=== PATIENT | female | born 1980 | race Caucasian/White ===

== ENCOUNTER 2020-03-27 12:13 | Emergency (ER) | payer BC, SELFPAY ==
--- NOTE | 2020-03-27 12:22 | ED.SKABFB ---
HPI - Skin/Abscess/Foreign Bdy General Chief complaint: Skin/Abscess/Foreign Body Stated complaint: rash on legs Time Seen by Provider: 03/27/20 12:35 Source: patient and RN notes reviewed Mode of arrival: ambulatory Limitations: no limitations History of Present Illness HPI narrative: 39-year-old female with history of smoking, presents with concern for bilateral lower leg edema. Reports the left leg has red spots, painful to the touch with a burning sensation. Reports symptoms started yesterday. Denies fever, malaise, cough, shortness of breath. Reports her significant other has identical symptoms that started at the same time, reports they have been staying in hotels under semi-homeless. Patient admits to using IV drugs, shooting up in her right arm yesterday. MD complaint: other (Leg swelling and discoloration) Related Data Allergies Allergy/AdvReac Type Severity Reaction Status Date / Time No Known Allergies Allergy Verified 03/27/20 12:33 Review of Systems Review of Systems: Narrative: CONSTITUTIONAL: Denies malaise, chills, sweats, or fever. ENT: Denies rhinorrhea, congestion, sinus pain, otalgia or sore throat. CARDIOVASCULAR: Denies chest pain, palpitations. Reports bilateral lower leg edema RESPIRATORY: Denies cough or dyspnea. GASTROINTESTINAL: Denies abdominal pain, nausea, vomiting, diarrhea SKIN: Reports left leg redness, burning pain MUSCULOSKELETAL: Denies myalgia. NEUROLOGIC: Denies numbness, weakness, or headache. All systems reviewed & are unremarkable except as noted in HPI and below PMFSH Comments At time of signature, agree with nursing past medical, surgical, social and family history. There is no relevant family history pertinent to the presenting complaint Exam Narrative: Exam Narrative: GENERAL: Well-appearing, well-nourished, and in no acute distress. HEAD: Normocephalic EYES: PERRLA, conjunctivae clear ENT: Nares clear. Mucous membranes moist. Oropharynx without erythema or lesions. Tonsils not enlarged and without exudate. NECK: Supple. No lymphadenopathy. CHEST: No respiratory distress. Clear to auscultation. No bony deformities, no asymmetry. Speaks in full sentences. HEART: Regular rate and rhythm. No murmur heard. Normal peripheral pulses. EXTREMITIES: Normal range of motion. Normal strength and sensation. Bilateral lower leg nonpitting edema SKIN: Warm, dry, no rash. Nonpalpable patches of dark red erythema, not consistent with cellulitis NEURO: Alert and oriented x3. PSYCH: Normal mood and affect Course Course Emergency Course: Discussed with patient need for further evaluation in the emergency department. Patient reports due to lack of transportation, she will not go to the emergency room now. Suggested transfer via EMS, although the patient is stable and does not require transfer via EMS. Patient refused. Anticipatory guidance given. Portions of this record may have been created with voice recognition software Vital Signs Vital signs: Reviewed. Patient has been instructed to follow up with her primary care provider within the next week regarding her elevated blood pressure today. MDM - Skin/Abscess/Foreign Bdy MDM Narrative Medical decision making narrative: Does not appear at this time to be erythema multiforme, bullous, SJS, TEN; no evidence at this time to suggest RMSF, endocarditis or Lyme disease; patient looks well, nontoxic and is tolerating oral intake; no neurologic signs or symptoms; no headache, photophobia or neck pain; afebrile; appropriate for initial outpatient treatment; discussed the importance of follow-up, patient agrees; question, viral exanthema, contact dermatitis, allergic dermatitis, eczema, urticaria. No soft palate or uvula edema, no tongue, lip edema or other mucosal involvement, no respiratory compromise, no stridor, no wheezing, no wheezing, no history of syncope, no hypotension, no nausea, vomiting, or diarrhea. No soft palate purpura The patient
[2020-03-27 12:25] VITALS: BP 133/81; PULSE 92; RESP 14; TEMP 36.6; O2SAT 99
== END 2020-03-27 13:18 | disposition left against medical advice (07) ==
PROVIDERS: Emergency Provider Nurse Practitioner
DX: R60.0 Localized edema (principal); F41.9 Anxiety disorder, unspecified
CPT/HCPCS: 99213; G0463

== ENCOUNTER 2020-05-02 17:23 | Emergency (ER) | payer BC, SELFPAY ==
[2020-05-02 17:27] VITALS: BP 140/82; PULSE 102; RESP 16; TEMP 36.6; O2SAT 98
--- NOTE | 2020-05-02 17:48 | ED.GENADULT ---
HPI - General Adult General Chief complaint: Ear Stated complaint: left ear pain/drainage Time Seen by Provider: 05/02/20 17:48 Source: patient and RN notes reviewed Mode of arrival: ambulatory Limitations: no limitations History of Present Illness HPI narrative: 39-year-old female presents with complaints of fever (no temperature take only warm to touch per patient), left otalgia, and yellow drainage from LT ear for the past 2 days. Aline says she has taking 6 tablets of left over Keflex and OTC ear drops without relief. Denies swimming or getting water into ear. Trouble hearing. Denies URI symptoms, No high fevers or chills. Denies injury to the ear. No nasal drainage and congestion. Denies nausea, vomiting, tinnitus, and dizziness. LMP 04/04/20. Remains active. The patient reports she have not been diagnosed with COVID-19. The patient reports she is not waiting for the results of a COVID-19 lab test. The patient reports she do not have fever, chills, weakness, fatigue, myalgia, or facial swelling. The patient reports she do not have a new or worsening cough or shortness of breath. Denies chest pain. The patient reports she do not have any rhinorrhea, congestion, sore throat, nausea, vomiting, abdominal pain, and diarrhea. Tolerating po intake well. Denies recent traveling. Denies concerns for COVID-19 or exposures been home with limited outdoor exposure except for essential household needs, work, and return home. At this time, patient is not suspected of having COVID-19. Some parts of this dictation were generated by voice recognition software and may contain typographical and/or grammatical inaccuracies. Related Data Allergies Allergy/AdvReac Type Severity Reaction Status Date / Time No Known Allergies Allergy Verified 05/02/20 17:35 Review of Systems Review of Systems: Narrative: CONSTITUTIONAL: Denies chills, sweats. Complain of fever. EYES: Denies visual changes, redness, discharge. ENT: Denies rhinorrhea, congestion, sore throat otalgia. Complains of LT otalgia with yellow drainage. CARDIOVASCULAR: Denies chest pain, palpitations, edema. RESPIRATORY: Denies dyspnea, wheezing, cough. GASTROINTESTINAL: Denies abdominal pain, nausea, vomiting, diarrhea. GENITOURINARY: Denies dysuria, hematuria, abnormal discharge. SKIN: Denies rash or itching. MUSCULOSKELETAL: Denies acute back pain, joint pain, or myalgia. NEUROLOGIC: Denies numbness or focal weakness. PSYCHIATRIC: Denies anxiety or depression. All systems reviewed & are unremarkable except as noted in HPI and below PMFSH Past Medical History Medical History Ankle fracture, left Anxiety Depression Peripheral vascular disease Smoker in home Surgical History Surgical History (Updated 05/02/20 @ 18:03 by ИРИНА Perez) History of axillary surgery Right axilla lymph node removal Family History Family History (Updated 05/02/20 @ 18:03 by ИРИНА Perez) Father Alive and well Mother Peripheral vascular disease Social History Social History (Updated 05/02/20 @ 18:04 by ИРИНА Perez) Smoking packs per day: 0.5 Smoking cigarettes per day: 10.0 Years smoked: 20 Smoking pack-years: 10.00 Smoking status: Current every day smoker Tobacco type: cigarettes Second hand tobacco smoke exposure: Yes Alcohol intake: former Alcohol use details: Aline says 5 years ago she stopped drinking Substance use: never Living arrangements: with family Occupation/Education: unemployed Gender identity (if verbalized by the patient): Female Sexual Orientation (if Verbalized by the Patient): Straight or Heterosexual Comments At time of signature, I have reviewed and agree with nursing past medical, surgical, social, and family history. Please see nursing chart for further information. There is no relevant family history pertinent to the presenting complaint. Exam Narrative: Exam Narrative
== END 2020-05-02 18:03 | disposition home or self-care (01) ==
PROVIDERS: Emergency Provider Nurse Practitioner Family
DX: H60.92 Unspecified otitis externa, left ear (principal); F17.210 Nicotine dependence, cigarettes, uncomplicated; I73.9 Peripheral vascular disease, unspecified
CPT/HCPCS: 99213; G0463

== ENCOUNTER 2021-03-27 18:39 | Emergency (ER) | payer BC, SELFPAY ==
[2021-03-27 18:54] VITALS: BP 122/71; PULSE 90; RESP 18; TEMP 36.9; O2SAT 99
--- NOTE | 2021-03-27 19:46 | ED.SKABFB ---
HPI - Skin/Abscess/Foreign Bdy General Chief complaint: Skin/Abscess/Foreign Body Stated complaint: Possible Cellulitis Time Seen by Provider: 03/27/21 19:47 Source: patient, RN notes reviewed and old records reviewed Mode of arrival: ambulatory Limitations: no limitations History of Present Illness HPI narrative: 40 year old female who [facility] with complaints of red inflamed skin to the distal posterior lower left leg, which is painful and swollen. Patient states that she scratched the back of her leg 2 days ago and now she has this pain and red rash. Patient denies any pain to her calf area of her left lower leg, patient has swelling to her left ankle and foot. Pedal pulses palpable to her left foot with foot warm to touch negative Homans sign. Patient states that she took 3 doses of Amoxicillin that she had at home and has been applying Bactroban ointment. Patient states that she has had cellulitis in the past. MD complaint: rash Onset (ago): day(s) (2) Location: LLE Severity: moderate Severity scale (1-10): 10 Quality: aching, sharp and other (throbbing) Pain Consistency: constant Relieving factors: none Exacerbating factors: movement Context: other (scratched skin) Associated symptoms: denies other symptoms Treatments prior to arrival: OTC topical medication and antibiotic (left over Amoxicillin 3 doses) Related Data Allergies Allergy/AdvReac Type Severity Reaction Status Date / Time No Known Allergies Allergy Verified 05/02/20 17:35 Review of Systems Review of Systems: Narrative: CONSTITUTIONAL: Denies fever, chills, or sweats. EYES: Denies visual changes, redness, or discharge. ENT: Denies rhinorrhea, congestion, sore throat, or otalgia. CARDIOVASCULAR: Denies chest pain, palpitations, or edema. RESPIRATORY: Denies cough or dyspnea. GASTROINTESTINAL: Denies abdominal pain, nausea, vomiting, or diarrhea. GENITOURINARY: Denies dysuria or hematuria. SKIN: Positive for rash with pain to the distal posterior left lower leg painful and warm MUSCULOSKELETAL: Denies back pain, joint pain, or myalgia. NEUROLOGIC: Denies headache, numbness, or weakness. PSYCHIATRIC: Positive anxiety or depression. All systems reviewed & are unremarkable except as noted in HPI and below PMFSH Past Medical History Medical History Ankle fracture, left Anxiety Depression Peripheral vascular disease Smoker in home Surgical History Surgical History History of axillary surgery Right axilla lymph node removal Family History Family History Father Alive and well Mother Peripheral vascular disease Social History Social History Smoking packs per day: 0.5 Smoking cigarettes per day: 10.0 Years smoked: 20 Smoking pack-years: 10.00 Smoking status: Current every day smoker Tobacco type: cigarettes Second hand tobacco smoke exposure: Yes Alcohol intake: former Alcohol use details: Aline says 5 years ago she stopped drinking Substance use: never Gender identity (if verbalized by the patient): Female Comments At time of signature, agree with nursing past medical, surgical, social and family history. There is no relevant family history pertinent to the presenting complaint Exam Narrative: Exam Narrative: GENERAL: Well-appearing, well-nourished, and in no acute distress. HEAD: Normocephalic, atraumatic. EYES: PERRLA and EOMI. ENT: Nares clear, no rhinorrhea or epistaxis. Mucous membranes moist. NECK: Supple.no lymph adenopathy CHEST: Clear to auscultation. No respiratory distress.SAO2 99% on room air HEART: Regular rate and rhythm. No murmur heard. Normal peripheral pulses. ABDOMEN: Soft, nontender, nondistended, normal active bowel sounds. EXTREMITIES: Normal range of motion. Edema to left ankle and foot SKIN: Warm, dry, red infl
== END 2021-03-27 20:06 | disposition home or self-care (01) ==
PROVIDERS: Emergency Provider Registered Nurse
DX: L03.116 Cellulitis of left lower limb (principal); F17.210 Nicotine dependence, cigarettes, uncomplicated; I73.9 Peripheral vascular disease, unspecified
CPT/HCPCS: 99213; G0463

== ENCOUNTER 2021-05-21 16:36 | Emergency (ER) | payer BC, SELFPAY ==
[2021-05-21 16:48] VITALS: BP 138/84; PULSE 105; RESP 16; TEMP 37.1; O2SAT 100
--- NOTE | 2021-05-21 16:54 | ED.SKABFB ---
HPI - Skin/Abscess/Foreign Bdy General Chief complaint: Skin/Abscess/Foreign Body Stated complaint: spider bite on breast Source: patient Mode of arrival: ambulatory Limitations: no limitations History of Present Illness HPI narrative: Patient is a 41-year-old female who presents complaining of abscess to right breast. Patient states spider bite right breast x2 days. She reports increased pain and swelling today. Denies drainage. Patient denies fever, denies taking [id number] medications for pain prior to arrival. Patient has a history of right axillary lymph node removal. MD complaint: abscess/boil Related Data Allergies Allergy/AdvReac Type Severity Reaction Status Date / Time No Known Allergies Allergy Verified 05/02/20 17:35 Review of Systems Review of Systems: CONSTITUTIONAL: Denies fever, chills, or sweats. EYES: Denies visual changes, redness, or discharge. ENT: Denies rhinorrhea, congestion, sore throat, or otalgia. CARDIOVASCULAR: Denies chest pain, palpitations, or edema. RESPIRATORY: Denies cough or dyspnea. GASTROINTESTINAL: Denies abdominal pain, nausea, vomiting, or diarrhea. GENITOURINARY: Denies dysuria or hematuria. SKIN: Abscess to right breast MUSCULOSKELETAL: Denies back pain, joint pain, or myalgia. NEUROLOGIC: Denies headache, numbness, dizziness, or weakness. PSYCHIATRIC: Denies anxiety or depression. [facility] Past Medical History Medical History Ankle fracture, left Anxiety Depression Peripheral vascular disease Smoker in home Surgical History Surgical History History of axillary surgery Right axilla lymph node removal Family History Family History Father Alive and well Mother Peripheral vascular disease Social History Social History Smoking packs per day: 0.5 Smoking cigarettes per day: 10.0 Years smoked: 20 Smoking pack-years: 10.00 Smoking status: Current every day smoker Tobacco type: cigarettes Second hand tobacco smoke exposure: Yes Alcohol intake: former Alcohol use details: Aline says 5 years ago she stopped drinking Substance use: never Gender identity (if verbalized by the patient): Female Sexual Orientation (if Verbalized by the Patient): Straight or Heterosexual Comments At the time of signature, I have reviewed and agree with nursing past medical, surgical, social, and family history unless otherwise noted. Please see nursing chart for further information. There is no relevant family history pertinent to the presenting complaint. Exam Narrative: GENERAL: Well-appearing, well-nourished, and in no acute distress. HEAD: Normocephalic, atraumatic. EYES: EOMI. No redness or drainage. Conjunctiva are normal. ENT: Mucous membranes pink and moist. Nares clear. No rhinorrhea. TMs normal bilaterally. Throat normal. Uvula midline. NECK: AROM. Supple. No lymphadenopathy. CHEST: No respiratory distress. Clear to auscultation. HEART: Regular rate and rhythm. No murmur appreciated. Normal peripheral pulses. GI: Soft, nontender without rebound, or guarding. No distention. Bowel sounds normal in all quadrants. MUSCULOSKELETAL: No bony tenderness. EXTREMITIES: Normal range of motion. No edema. SKIN: Approximate 12 inch long by 8 inches wide area of erythema and edema, fluctuation present. Approximate 8 cm round raised area and central area. No drainage noted at this time. NEURO: No focal deficits. Alert and oriented x3. Gait steady. PSYCH: Normal affect. No signs of depression or anxiety. Course Transfer Transfered to: [facility]) Transfer rationale: Higher level of care Accepting physician: Dr. Tuttle Transfer comments: Patient to be transferred per private vehicle. Critical Care Time Critical Care Time Critical Care Time: No Discharge
== END 2021-05-21 16:57 | disposition short-term general hospital (02) ==
PROVIDERS: Emergency Provider Nurse Practitioner; PCP Nurse Practitioner Adult Health
DX: N61.1 Abscess of the breast and nipple (principal); N61.0 Mastitis without abscess; I73.9 Peripheral vascular disease, unspecified; F17.210 Nicotine dependence, cigarettes, uncomplicated
CPT/HCPCS: 99212; G0463

== ENCOUNTER 2022-03-12 14:31 | Emergency (ER) | payer BC, SELFPAY ==
[2022-03-12 14:36] VITALS: BP 145/86; PULSE 99; RESP 16; TEMP 36.6; O2SAT 98
--- NOTE | 2022-03-12 14:52 | ED.EYEPROB ---
HPI - Eye Problem General Chief complaint: Eye Problems Stated complaint: eyes dry itchy and swollen hand Time Seen by Provider: 03/12/22 14:52 History of Present Illness HPI Narrative: Patient is a 41-year-old female who presents the urgent care with complaints of now she thinks she is getting 1 right swollen hand, bilateral itchy eyes and possibility of bacterial vaginosis. Patient states that the right swollen hand has been like that intermittently for the last 6 months. Patient states that she used to be an IV drug user and had cellulitis in that hand and ever since then she has had intermittent swelling. Patient states the swelling has not gotten any worse or better over the last several months however she feels like she is deformed . Patient denies any recent fevers, nausea, vomiting or redness to the hand. Denies any recent trauma or injury to the hand. Patient has been taking Benadryl for the itchy eyes that started yesterday. Patient wears false eyelashes but states she has never had issues with allergic reactions from the glue or lashes themselves. Patient denies any new make-up products. States that she recently was using a sex toy that may have not been completely sanitized prior to use and now she has foul odor of vaginal discharge consistent with her history of bacterial vaginosis. Patient denies any abdominal pain. No other complaints. No distress noted. Patient aware of the plan of care. Some parts of this dictation were generated by voice recognition software and may contain typographical and/or grammatical inaccuracies. Related Data Allergies Allergy/AdvReac Type Severity Reaction Status Date / Time No Known Allergies Allergy Verified 03/12/22 15:05 Review of Systems Review of Systems: CONSTITUTIONAL: Denies fever, chills, or sweats. EYES: Reports bilateral itchy eyes with clear drainage ENT: Denies rhinorrhea, congestion, sore throat, or otalgia. CARDIOVASCULAR: Denies chest pain, palpitations, or edema. RESPIRATORY: Denies cough or dyspnea. GASTROINTESTINAL: Denies abdominal pain, nausea, vomiting, or diarrhea. GENITOURINARY: Reports of foul odor to the vaginal thick discharge SKIN: Denies rash or itching. MUSCULOSKELETAL: Reports of chronic swelling to the right hand NEUROLOGIC: Denies headache, numbness, or weakness. All other systems reviewed are negative, except as documented in HPI. [facility] Past Medical History Medical History Ankle fracture, left Anxiety Depression Peripheral vascular disease Smoker in home Surgical History Surgical History History of axillary surgery Right axilla lymph node removal Family History Family History Father Alive and well Mother Peripheral vascular disease Social History Social History Smoking packs per day: 0.5 Smoking cigarettes per day: 10.0 Years smoked: 20 Smoking pack-years: 10.00 Smoking status: Current every day smoker Tobacco type: cigarettes Second hand tobacco smoke exposure: Yes Alcohol intake: former Alcohol use details: Aline says 5 years ago she stopped drinking Substance use: never Gender identity (if verbalized by the patient): Female Sexual Orientation (if Verbalized by the Patient): Straight or Heterosexual Comments At the time of my signature, I reviewed and agree with the nursing past medical, surgical, social, and family history. There is no relevant family history pertinent to the patient complaint. Exam Narrative: GENERAL: This is a well-nourished, well-developed patient, in no apparent distress. HEAD: normocephalic, atraumatic. EYES: PERRL. Sclera clear/white. Vision is grossly intact. Mild injected conjunctiva bilaterally with clear drainage EARS: External ears normal NOSE: External nose normal with no obvious nasal disc
== END 2022-03-12 15:20 | disposition home or self-care (01) ==
PROVIDERS: Emergency Provider Nurse Practitioner Family; PCP Internal Medicine
DX: H10.13 Acute atopic conjunctivitis, bilateral (principal); N76.0 Acute vaginitis; M79.89 Other specified soft tissue disorders; F17.210 Nicotine dependence, cigarettes, uncomplicated; I73.9 Peripheral vascular disease, unspecified
CPT/HCPCS: 99213; G0463

== ENCOUNTER 2022-09-13 14:58 | Emergency (ER) | payer BC, SELFPAY ==
[2022-09-13 15:04] VITALS: BP 153/87; PULSE 94; RESP 18; TEMP 37.7; O2SAT 98
--- NOTE | 2022-09-13 15:40 | ED.EAR ---
HPI - Ear Problem General Chief complaint: Ear Stated complaint: Ear Pain Time Seen by Provider: 09/13/22 15:40 Source: patient Mode of arrival: ambulatory Limitations: no limitations History of Present Illness HPI Narrative: 42-year-old female who presents to [facility] Care with complaints of 1 day duration of right ear pain with swelling, drainage and fevers and acute pain to her right ear. Patient reports that she began having yellowish greenish drainage from her right ear last night but pain has increased today.Patient has been having some low grade fevers today, has not taken any OTC medication for her discomfort. MD Complaint: ear pain and ear discharge Location: right ear Duration: constant Discharge from ear: Reports yes - purulent Treatment prior to arrival: none Related Data Allergies Allergy/AdvReac Type Severity Reaction Status Date / Time No Known Allergies Allergy Verified 09/13/22 15:30 Review of Systems Review of Systems: CONSTITUTIONAL: Denies malaise, chills, sweats, or fever. EYES: Denies visual changes, redness, or discharge. ENT: Reports rhinorrhea, congestion, sinus pain, positive for right ear pain no sore throat. CARDIOVASCULAR: Denies chest pain, palpitations, or edema. RESPIRATORY: Reports cough.? Denies dyspnea. GASTROINTESTINAL: Denies abdominal pain, nausea, vomiting, diarrhea SKIN: Denies rash or itching. MUSCULOSKELETAL: Denies myalgia. NEUROLOGIC: Denies headache. All systems reviewed & are unremarkable except as noted in HPI and below PMFSH Past Medical History Medical History Ankle fracture, left Anxiety Depression Peripheral vascular disease Smoker in home Surgical History Surgical History History of axillary surgery Right axilla lymph node removal Family History Family History Father Alive and well Mother Peripheral vascular disease Social History Social History Smoking packs per day: 0.5 Smoking cigarettes per day: 10.0 Years smoked: 20 Smoking pack-years: 10.00 Smoking status: Current every day smoker Tobacco type: cigarettes Second hand tobacco smoke exposure: Yes Alcohol intake: former Alcohol use details: Aline says 5 years ago she stopped drinking Substance use: never Gender identity (if verbalized by the patient): Female Sexual Orientation (if Verbalized by the Patient): Straight or Heterosexual Comments At time of signature, agree with nursing past medical, surgical, social and family history. There is no relevant family history pertinent to the presenting complaint Exam Narrative: GENERAL: Well-appearing, well-nourished, and in no acute distress. HEAD: Normocephalic EYES: PERRLA, conjunctivae clear ENT: Nares clear, turbinates edematous and erythematous, clear discharge. Mucous membranes moist.Right TM red and bulging, ear canal swollen with excoriation and drainage which is purulent. Left TM pearly mobley with dull light reflex; Right tragal tenderness. Oropharynx erythematous without lesions. Tonsils not enlarged and without exudate, no drooling, no hoarseness, no trismus, uvula midline. NECK: Supple. No lymphadenopathy CHEST: Clear to auscultation, breath sounds equal. No wheezing, rhonchi, rales, or stridor. No respiratory distress, speaks in full sentences.SAO2 98% on room air HEART: Regular rate and rhythm. No murmur heard. SKIN: Warm, dry, no rash. NEURO: Alert and oriented x3. PSYCH: Normal mood and affect Course Course Emergency Course: Patient is aware of diagnosis, understands and agrees to treatment plan.? Anticipatory guidance given.? Patient agrees to follow-up as directed and is aware of reasons to seek care at the emergency department. Portions of this record may have been created with voice recognition soft
== END 2022-09-13 15:55 | disposition home or self-care (01) ==
PROVIDERS: Emergency Provider Registered Nurse; PCP Internal Medicine
DX: H60.391 Other infective otitis externa, right ear (principal); H65.01 Acute serous otitis media, right ear; F17.210 Nicotine dependence, cigarettes, uncomplicated; I73.9 Peripheral vascular disease, unspecified
CPT/HCPCS: 99213; G0463

== ENCOUNTER 2022-10-28 19:47 | Emergency (ER) | payer BC, SELFPAY ==
--- NOTE | 2022-10-28 19:49 | ED.LOWEXIN ---
HPI - Extremity Injury (Lower) General Chief Complaint: Skin/Abscess/Foreign Body Stated Complaint: left leg Time Seen by Provider: 10/28/22 19:50 Source: patient and RN notes reviewed History of Present Illness HPI Narrative: Patient is a 42-year-old female who presents to urgent care with complaints of left lower leg swelling, redness and pain. Patient states she noticed it 2 days ago and it seems to have worsened this evening. Patient has not done anything [id number] for her pain. Patient states that she has had cellulitis in the past and her right hand has been chronically swollen due to a stint of cellulitis while she was in senior living approximately 1 year ago. Patient denies any fever, nausea or vomiting. Denies any recent injury to cause the redness, swelling or pain. No other acute complaints. No acute distress noted. Patient aware of the plan of care. Some parts of this dictation were generated by voice recognition software and may contain typographical and/or grammatical inaccuracies. Related Data Home Medications Medication Instructions Recorded Confirmed bupropion HCl 100 mg tablet,12 hr 100 mg PO BID 10/28/22 10/28/22 sustained-release Allergies Allergy/AdvReac Type Severity Reaction Status Date / Time No Known Allergies Allergy Verified 09/13/22 15:30 Review of Systems Review of Systems: CONSTITUTIONAL: Denies fever, chills, or sweats. EYES: Denies visual changes, redness, or discharge. ENT: Denies rhinorrhea, congestion, sore throat, or otalgia. CARDIOVASCULAR: Denies chest pain, palpitations, or edema. RESPIRATORY: Denies cough or dyspnea. GASTROINTESTINAL: Denies abdominal pain, nausea, vomiting, or diarrhea. GENITOURINARY: Denies dysuria or hematuria. SKIN: Denies rash or itching. MUSCULOSKELETAL: Reports of redness, pain and swelling to the left lower leg NEUROLOGIC: Denies headache, numbness, or weakness. All other systems reviewed are negative, except as documented in HPI. [facility] Past Medical History Medical History Ankle fracture, left Anxiety Depression Peripheral vascular disease Smoker in home Surgical History Surgical History History of axillary surgery Right axilla lymph node removal Family History Family History Father Alive and well Mother Peripheral vascular disease Social History Social History Smoking packs per day: 0.5 Smoking cigarettes per day: 10.0 Years smoked: 20 Smoking pack-years: 10.00 Smoking status: Current every day smoker Tobacco type: cigarettes Second hand tobacco smoke exposure: Yes Alcohol intake: former Alcohol use details: Aline says 5 years ago she stopped drinking Substance use: never Living arrangements: with family Occupation/Education: unemployed Gender identity (if verbalized by the patient): Female Sexual Orientation (if Verbalized by the Patient): Straight or Heterosexual Comments At the time of my signature, I reviewed and agree with the nursing past medical, surgical, social, and family history. There is no relevant family history pertinent to the patient complaint. Exam Narrative: GENERAL: This is a well-nourished, well-developed patient, in no apparent distress. HEAD: normocephalic, atraumatic. EYES: PERRL. Sclera clear/white. Vision is grossly intact. EARS: External ears normal NOSE: External nose normal with no obvious nasal discharge, nares without redness, no rhinorrhea. THROAT: Mucous membranes moist NECK: Neck supple SKIN: 14 x 6 area of erythema and warmth to the medial aspect of the left lower leg/ankle NEURO: awake, alert, and oriented to person, place and time. There were no obvious focal neurologic abnormalities. EXTREMITIES: 2+ left lower leg pitting edema with positive strong left pedal pulse and capillary
[2022-10-28 19:50] VITALS: BP 147/90; PULSE 98; RESP 20; TEMP 36.1; O2SAT 100
[2022-10-28 19:56] VITALS: BP 147/90; PULSE 98; RESP 20; TEMP 36.1; O2SAT 100
== END 2022-10-28 20:00 | disposition home or self-care (01) ==
PROVIDERS: Emergency Provider Nurse Practitioner Family; PCP Internal Medicine
DX: L03.116 Cellulitis of left lower limb (principal); L02.416 Cutaneous abscess of left lower limb; F17.210 Nicotine dependence, cigarettes, uncomplicated; F41.9 Anxiety disorder, unspecified; F32.A Depression, unspecified; I73.9 Peripheral vascular disease, unspecified
CPT/HCPCS: 99213; G0463

== ENCOUNTER 2023-01-03 19:55 | Emergency (ER) | payer BC, SELFPAY ==
--- NOTE | 2023-01-03 19:55 | ED.LOWEXIN ---
HPI - Extremity Injury (Lower) General Chief Complaint: Extremity Injury, Lower Stated Complaint: toes on left foot Time Seen by Provider: 01/03/23 19:56 Source: patient and RN notes reviewed History of Present Illness HPI Narrative: Patient is a 42-year-old female who presents to urgent care with complaints of possible broken toes on the left foot on her wooden bar at home. Patient states she stubbed him approximately 1-2 weeks ago and she is having increased pain. Patient states that she saw her primary care doctor because of the bruising and they ruled out a DVT. Patient is requesting prescription pain medication. Patient is current/former drug use. Patient has been taking Tylenol and ibuprofen. No other acute complaints. No acute distress noted. Patient aware of the plan of care. Some parts of this dictation were generated by voice recognition software and may contain typographical and/or grammatical inaccuracies. Related Data Home Medications Medication Instructions Recorded Confirmed bupropion HCl 100 mg tablet,12 hr 100 mg PO BID 10/28/22 10/28/22 sustained-release Allergies Allergy/AdvReac Type Severity Reaction Status Date / Time No Known Allergies Allergy Verified 01/03/23 20:00 Review of Systems Review of Systems: CONSTITUTIONAL: Denies fever, chills, or sweats. EYES: Denies visual changes, redness, or discharge. ENT: Denies rhinorrhea, congestion, sore throat, or otalgia. CARDIOVASCULAR: Denies chest pain, palpitations, or edema. RESPIRATORY: Denies cough or dyspnea. GASTROINTESTINAL: Denies abdominal pain, nausea, vomiting, or diarrhea. GENITOURINARY: Denies dysuria or hematuria. SKIN: Denies rash or itching. MUSCULOSKELETAL: Reports bruising and pain to the 4th and 5th digit on the right foot NEUROLOGIC: Denies headache, numbness, or weakness. All other systems reviewed are negative, except as documented in HPI. [facility] Past Medical History Medical History Ankle fracture, left Anxiety Depression Peripheral vascular disease Smoker in home Surgical History Surgical History History of axillary surgery Right axilla lymph node removal Family History Family History Father Alive and well Mother Peripheral vascular disease Social History Social History Smoking packs per day: 0.5 Smoking cigarettes per day: 10.0 Years smoked: 20 Smoking pack-years: 10.00 Smoking status: Current every day smoker Tobacco type: cigarettes Second hand tobacco smoke exposure: Yes Alcohol intake: former Alcohol use details: Aline says 5 years ago she stopped drinking Substance use: never Living arrangements: with family Occupation/Education: unemployed Gender identity (if verbalized by the patient): Female Sexual Orientation (if Verbalized by the Patient): Straight or Heterosexual Comments At the time of my signature, I reviewed and agree with the nursing past medical, surgical, social, and family history. There is no relevant family history pertinent to the patient complaint. Exam Narrative: GENERAL: This is a well-nourished, well-developed patient, in no apparent distress. HEAD: normocephalic, atraumatic. EYES: PERRL. Sclera clear/white. Vision is grossly intact. EARS: External ears normal NOSE: External nose normal with no obvious nasal discharge, nares without redness, no rhinorrhea. THROAT: Mucous membranes moist SKIN: warm, intact with no suspicious lesions or rash, good texture and turgor. NEURO: awake, alert, and oriented to person, place and time. There were no obvious focal neurologic abnormalities. EXTREMITIES: Ecchymosis and mild edema noted to the 4th and 5th digit on the left foot. Positive strong left pedal pulse with capillary refill less than 2 seconds. Course Course Level of Car
[2023-01-03 19:56] VITALS: BP 153/91; PULSE 109; RESP 20; TEMP 36.4; O2SAT 98
== END 2023-01-03 20:06 | disposition home or self-care (01) ==
PROVIDERS: Emergency Provider Nurse Practitioner Family; PCP Internal Medicine
DX: M79.675 Pain in left toe(s) (principal); F17.210 Nicotine dependence, cigarettes, uncomplicated; I73.9 Peripheral vascular disease, unspecified; F41.9 Anxiety disorder, unspecified; F32.A Depression, unspecified
CPT/HCPCS: 99211; G0463

== ENCOUNTER 2023-04-30 16:28 | Emergency (ER) | payer BC, SELFPAY ==
[2023-04-30 16:34] VITALS: BP 142/79; PULSE 92; RESP 18; TEMP 36.6; O2SAT 99
--- NOTE | 2023-04-30 16:44 | ED.EXTPRO ---
HPI - Extremity Problem General Chief complaint: Wound/Laceration Stated complaint: toes on left foot Time Seen by Provider: 04/30/23 16:50 Source: patient and RN notes reviewed Mode of arrival: ambulatory Limitations: no limitations History of Present Illness HPI Narrative: 42-year-old female presents with concern for chronic wound on her left foot that she feels is in fact did. Reports that starting to smell. Reports she has had problems with circulation in her feet for some time and has been unable to get a diagnosis for this problem. Reports she developed a wound on the pedal aspect of her 4th digit of the left foot about a month and half ago that will not heal and is now beginning to smell, she reports purulent drainage. She reports she has been soaking the foot in warm Epson salt water, she uses wound cleanser and peroxide. Reports she elevates her feet whenever she can. MD Complaint: extremity pain Related Data Allergies Allergy/AdvReac Type Severity Reaction Status Date / Time No Known Allergies Allergy Verified 04/30/23 16:49 Review of Systems Review of Systems: CONSTITUTIONAL: Denies malaise, chills, sweats, or fever. EYES: Denies redness, or discharge. ENT: Denies rhinorrhea, congestion, swollen lips, swollen tongue CARDIOVASCULAR: Denies chest pain, palpitations, or edema. RESPIRATORY: Denies cough or dyspnea. GASTROINTESTINAL: Denies abdominal pain, nausea, vomiting SKIN: Reports chronic wound on the 4th digit of her left foot MUSCULOSKELETAL: Pain and swelling in the 4th and 5th digits of the left foot NEUROLOGIC: Denies headache. All systems reviewed & are unremarkable except as noted in HPI and below PMFSH Past Medical History Medical History Ankle fracture, left Anxiety Depression Peripheral vascular disease Smoker in home Surgical History Surgical History History of axillary surgery Right axilla lymph node removal Family History Family History Father Alive and well Mother Peripheral vascular disease Social History Social History Smoking packs per day: 0.5 Smoking cigarettes per day: 10.0 Years smoked: 20 Smoking pack-years: 10.00 Smoking status: Current every day smoker Tobacco type: cigarettes Second hand tobacco smoke exposure: Yes Alcohol intake: former Alcohol use details: Aline says 5 years ago she stopped drinking Substance use: never Living arrangements: with family Occupation/Education: unemployed Gender identity (if verbalized by the patient): Female Sexual Orientation (if Verbalized by the Patient): Straight or Heterosexual Comments At time of signature, agree with nursing past medical, surgical, social and family history. There is no relevant family history pertinent to the presenting complaint Exam Narrative: GENERAL: Well-appearing, well-nourished, and in no acute distress. HEAD: Normocephalic, atraumatic. EYES: PERRLA, conjunctivae clear, and EOMI. ENT: Mucous membranes moist. Oropharynx without edema, erythema or lesions. NECK: Supple. No lymphadenopathy CHEST: Clear to auscultation. No respiratory distress. HEART: Regular rate and rhythm. EXT: Digits 4 and 5 of the left foot edematous, tender SKIN: Warm, dry. Dusky coloration noted to the 3rd, 4th, 5th digits of both feet with cap refill at 3 seconds bilaterally. Wound with yellow crusted wound bed noted to the dorsal aspect of the 4th digit of the left foot approximately 0.5 cm in diameter NEURO: Alert and oriented x3. PSYCH: Normal mood and affect Course Course Emergency Course: Patient was given information for wound care as well as the new primary care provider. Patient is aware of diagnosis, understands and agrees to treatment plan. Anticipatory guidance given. Patient agrees to follow-up
== END 2023-04-30 17:05 | disposition home or self-care (01) ==
PROVIDERS: Emergency Provider Nurse Practitioner; PCP Internal Medicine
DX: S91.105A Unspecified open wound of left lesser toe(s) without damage to nail, initial encounter (principal); X58.XXXA Exposure to other specified factors, initial encounter; I73.9 Peripheral vascular disease, unspecified; F17.210 Nicotine dependence, cigarettes, uncomplicated
CPT/HCPCS: 99213; G0463

== ENCOUNTER 2023-06-13 19:45 | Emergency (ER) | payer BC, SELFPAY ==
[2023-06-13 19:50] VITALS: BP 131/86; PULSE 101; RESP 18; TEMP 36.9; O2SAT 98
--- NOTE | 2023-06-13 19:54 | ED.SKABFB ---
HPI - Skin/Abscess/Foreign Bdy General Chief complaint: Skin/Abscess/Foreign Body Stated complaint: Right foot burning aching Time Seen by Provider: 06/13/23 19:47 History of Present Illness HPI narrative: Patient presents with chronic problems to her lower extremities and has been treated for same symptoms in the past. Patient presents today with pain tenderness and warmth to her right lower extremity. Patient has been treated multiple times to this facility for same complaints. Patient has not followed with the primary care provider as advised. Patient denies injury to foot. Patient states this is a chronic problem and usually gets better with antibiotic. Related Data Allergies Allergy/AdvReac Type Severity Reaction Status Date / Time No Known Allergies Allergy Verified 06/13/23 19:49 Review of Systems Review of Systems: CONSTITUTIONAL: Denies fever, chills, or sweats. EYES: Denies visual changes, redness, or discharge. ENT: Denies rhinorrhea, congestion, sore throat, or otalgia. CARDIOVASCULAR: Denies chest pain, palpitations, or edema. RESPIRATORY: Denies cough or dyspnea. GASTROINTESTINAL: Denies abdominal pain, nausea, vomiting, or diarrhea. GENITOURINARY: Denies dysuria or hematuria. SKIN: Denies rash or itching. MUSCULOSKELETAL: Denies back pain, joint pain, or myalgia. NEUROLOGIC: Denies headache, numbness, or weakness. PSYCHIATRIC: Denies anxiety or depression. [facility] Past Medical History Medical History Ankle fracture, left Anxiety Depression Peripheral vascular disease Smoker in home Surgical History Surgical History History of axillary surgery Right axilla lymph node removal Family History Family History Father Alive and well Mother Peripheral vascular disease Social History Social History Smoking packs per day: 0.5 Smoking cigarettes per day: 10.0 Years smoked: 20 Smoking pack-years: 10.00 Smoking status: Current every day smoker Tobacco type: cigarettes Second hand tobacco smoke exposure: Yes Alcohol intake: former Alcohol use details: Aline says 5 years ago she stopped drinking Substance use: never Living arrangements: with family Occupation/Education: unemployed Gender identity (if verbalized by the patient): Female Sexual Orientation (if Verbalized by the Patient): Straight or Heterosexual Comments At time of signature, agree with nursing past medical, surgical, social and family history. There is no relevant family history pertinent to the presenting complaint Exam Narrative: GENERAL: Well-appearing, well-nourished, and in no acute distress. HEAD: Normocephalic, atraumatic. EYES: PERRLA and EOMI. ENT: Nares clear, no rhinorrhea or epistaxis. Mucous membranes moist. NECK: Supple. CHEST: Clear to auscultation. No respiratory distress. HEART: Regular rate and rhythm. No murmur heard. Normal peripheral pulses. ABDOMEN: Soft, nontender, nondistended, normal active bowel sounds. EXTREMITIES: Normal range of motion. No edema. Dusky coloration noted to the 3rd, 4th, 5th digits of both feet with cap refill at 3 seconds bilaterally.? 3 cm area of redness lower ankle to top of right foot. Consistent with cellulitis no streaking no drainage noted. SKIN: Warm, dry, no rash. NEURO: No focal deficits. Alert and oriented x3. Somis Coma Scale Eye Opening: Spontaneous 4 [place] Coma Scale Motor: Obeys Commands 6 [place] Coma Scale Verbal: Oriented 5 [place] Coma Scale Total 15 Course Course Level of Care: Express Care Visit Vital Signs Vital signs: Vital Signs Temperature 36.9 C 06/13/23 19:50 Pulse Rate 101 H 06/13/23 19:50 Respiratory Rate 18 06/13/23 19:50 Blood Pressure 131/86 06/13/23 19:50 Pulse Oximetry 98 06/13/23 19:50 Oxygen Delivery Room Air
[2023-06-13 19:56] VITALS: BP 131/86; PULSE 101; RESP 18; TEMP 36.9; O2SAT 98
== END 2023-06-13 20:00 | disposition home or self-care (01) ==
PROVIDERS: Emergency Provider Nurse Practitioner Family; PCP Internal Medicine
DX: L03.115 Cellulitis of right lower limb (principal); L02.415 Cutaneous abscess of right lower limb; G89.29 Other chronic pain; F17.210 Nicotine dependence, cigarettes, uncomplicated
CPT/HCPCS: 99213; G0463

== ENCOUNTER 2023-07-16 14:35 | Emergency (ER) | payer BC, SELFPAY ==
--- NOTE | ~2023-07-16 | XR_ITS ---
XR toe 4th RT min 2V DATE: 07/16/2023 15:16 INDICATION: Acute onset of medial proximal lump. No known injury. TECHNIQUE: 5 total views COMPARISON: None FINDINGS: Nonspecific soft tissue swelling. No fracture or dislocation, periosteal reaction or bone d estruction, radiopaque soft tissue foreign body fourth digit. 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 IMPRESSION: Nonspecific soft tissue swelling; no significant bony abnormality of fourth digit Reviewed, dictated and finalized at location B. IMPRESSION: Nonspecific soft tissue swelling; no significant bony abnormality o f fourth digit
--- NOTE | ~2023-07-16 | XR_ITS ---
EXAMINATION: XR tibia fibula RT 2V DATE: 07/16/2023 15:23 INDICATION: New onset lump at the medial proximal right lower leg TECHNIQUE: Anteroposterior and lateral views of the right tibia and fibula were obtained. COMPARISON: None. FINDINGS: Alignment is normal. No fracture. Joint spaces are normal. Soft tissues are unremarkable. No knee or ankle joint effusion. IMPRESSION: 1. Negative right tibia/fibula radiographs. Reviewed, dictated and finalized at location A.
[2023-07-16 14:40] VITALS: BP 137/84; PULSE 102; RESP 18; TEMP 36.2; O2SAT 97
--- NOTE | 2023-07-16 14:48 | ED.SKABFB ---
HPI - Skin/Abscess/Foreign Bdy General Chief complaint: Skin/Abscess/Foreign Body Stated complaint: Toes on Right Foot Pain Time Seen by Provider: 07/16/23 14:48 Source: patient Mode of arrival: ambulatory Limitations: no limitations History of Present Illness HPI narrative: 43 yo F presents with redness and swelling to R 4th toe for several wks. Was seen at [facility] with same complaint. 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 began taking keflex and bactrim last night. Wants to make sure this is hte right abx since infection now worse. Also requesting tramadol for pain. Denies numbness/tingling. pt also reports bump just before R knee. States just popped up. grandoanh had a hx of rare bone cancer . All systems reviewed and negative except as noted above. Related Data Home Medications Medication Instructions Recorded Confirmed gabapentin 300 mg capsule 300 mg PO TID 07/16/23 07/16/23 Allergies Allergy/AdvReac Type Severity Reaction Status Date / Time No Known Allergies Allergy Verified 07/16/23 14:49 Review of Systems Review of Systems: CONSTITUTIONAL: Denies fever, chills, or sweats. EYES: Denies visual changes, redness, or discharge. ENT: Denies rhinorrhea, congestion, sore throat, or otalgia. CARDIOVASCULAR: Denies chest pain, palpitations, or edema. RESPIRATORY: Denies cough or dyspnea. GASTROINTESTINAL: Denies abdominal pain, nausea, vomiting, or diarrhea. GENITOURINARY: Denies dysuria or hematuria. SKIN: Denies rash or itching. reports redness and swelling to R 4th toe wtih pain. MUSCULOSKELETAL: Denies back pain, joint pain, or myalgia. NEUROLOGIC: Denies headache, numbness, or weakness. PSYCHIATRIC: Denies anxiety or depression. All other systems reviewed are negative, except as documented in HPI. [facility] Past Medical History Medical History Ankle fracture, left Anxiety Depression Peripheral vascular disease Smoker in home Surgical History Surgical History History of axillary surgery Right axilla lymph node removal Family History Family History Father Alive and well Mother Peripheral vascular disease Social History Social History Smoking packs per day: 0.5 Smoking cigarettes per day: 10.0 Years smoked: 20 Smoking pack-years: 10.00 Smoking status: Current every day smoker Tobacco type: cigarettes Second hand tobacco smoke exposure: Yes Alcohol intake: former Alcohol use details: Aline says 5 years ago she stopped drinking Substance use: never Living arrangements: with family Occupation/Education: unemployed Gender identity (if verbalized by the patient): Female Sexual Orientation (if Verbalized by the Patient): Straight or Heterosexual Comments At time of signature, agree with nursing past medical, surgical, social and family history. There is no relevant family history pertinent to the presenting complaint. Exam Narrative: GENERAL: This is a well-nourished, well-developed patient, in no apparent distress. HEAD: normocephalic, atraumatic. EYES: PERRL. Sclera clear/white. Vision is grossly intact. EARS: External ears normal NOSE: External nose normal NECK: Neck supple, non-tender without lymphadenopathy, masses or thyromegaly. CARDIOVASCULAR: Regular rate and rhythm without murmurs, gallops, or rubs. RESPIRATORY: Clear to auscultation. Breath sounds equal bilaterally. No wheezes, rales, or rhonchi. SKIN: warm, Dry, intact with no suspicious lesions or rash, good texture and turgor. erythema to R 4th toe and mild to R 5th toe, extending into distal aspect of R foot. Warm and tendon on palpation without fluctuance. normal temp. 2+DP pulse to RLE. NEURO: awake, alert, and oriented to person, place and time. There were no obvious focal brandon
--- NOTE | 2023-07-16 15:28 | PC.NURSE ---
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 PT IS REQUESTING TRAMADOL AND NUMBING CREAM PRIOR TO LEAVING. PT REPORTS SHE WILL EYELET CUTTER THE CHILDREN AND RETURN FOR RESULTS. PROVIDER SPOKE WITH PT AND ABX WERE SENT TO PHARMACY AND PT IS AWARE. PT DECLINES TO WAIT FOR RESULTS AT THIS TIME. PT ADVISED HER SITUATION WAS SERIOUS AND NEEDED FURTHER EVALUATION. PT ADVISED SHE WILL RETURN.
== END 2023-07-16 15:38 | disposition left against medical advice (07) ==
PROVIDERS: Emergency Provider Nurse Practitioner Family; PCP Internal Medicine
DX: L03.031 Cellulitis of right toe (principal); F17.210 Nicotine dependence, cigarettes, uncomplicated; I73.9 Peripheral vascular disease, unspecified
CPT/HCPCS: 73590; 73660; 99214; G0463

== ENCOUNTER 2024-02-20 11:41 | Emergency (ER) | payer OTHER, SELFPAY ==
[2024-02-20 12:00] VITALS: BP 142/93; PULSE 86; RESP 16; TEMP 36.9; O2SAT 99
--- NOTE | 2024-02-20 12:20 | ED.SKABFB ---
HPI - Skin/Abscess/Foreign Bdy General Chief complaint: Skin/Abscess/Foreign Body Stated complaint: Skin Sore/Left Ankle Time Seen by Provider: 02/20/24 12:03 Source: patient, RN notes reviewed and old records reviewed Mode of arrival: ambulatory Limitations: no limitations History of Present Illness HPI narrative: 43-year-old female to Express Care with complaint of left lateral ankle pain, swelling for 3 days. patient noted what appeared to be a bite 3-4 days ago and states increased swelling, redness and pain as well as generalized myalgias. Patient states that for past 2 days she has noticed her 4th and 5th toes being discolored. Patient reports history of bilateral lower extremity cellulitis. Patient denies fever, drainage from wound, nausea, itching. patient is hypertensive in triage. Patient appears anxious in exam room however patient is in no acute distress. Patient also requesting treatment for bacterial vaginosis. Patient reports history and states that she has been having malodorous discharge for 4 days. Patient believes it is a result of using contaminated sex toys . Related Data Allergies Allergy/AdvReac Type Severity Reaction Status Date / Time No Known Allergies Allergy Verified 07/16/23 14:49 Review of Systems Review of Systems: All systems reviewed & are unremarkable except as noted in HPI and below Constitutional: Constitutional: Reports as per HPI, Reports body ache(s), Reports fatigue and Denies fever(s) Eyes: Eyes: Reports no additional eye complaints ENT: Reports system reviewed and no additional complaints, except as documented Cardiovascular: Cardiovascular: Reports as per HPI, Reports acrocyanosis (left foot/digits), Denies chest pain, Denies chest pain at rest and Denies dyspnea Respiratory: Respiratory: Reports no additional respiratory complaints, Denies cough and Denies dyspnea Musculoskeletal: Musculoskeletal: Reports as per HPI and Reports myalgias Integumentary/Breasts: Skin/Breast: Reports as per HPI and Reports wounds ( Left lateral ankle) Neurologic: Reports system reviewed and no additional complaints, except as documented Psychiatric: Psychiatric: Reports no additional psychiatric complaints [facility] Past Medical History Medical History Ankle fracture, left Anxiety Depression Peripheral vascular disease Smoker in home Surgical History Surgical History History of axillary surgery Right axilla lymph node removal Family History Family History Father Alive and well Mother Peripheral vascular disease Social History Social History Smoking packs per day: 0.5 Smoking cigarettes per day: 10.0 Years smoked: 20 Smoking pack-years: 10.00 Smoking status: Current every day smoker Tobacco type: cigarettes Second hand tobacco smoke exposure: Yes Alcohol intake: former Alcohol use details: Aline says 5 years ago she stopped drinking Substance use: never Living arrangements: with family Occupation/Education: unemployed Gender identity (if verbalized by the patient): Female Sexual Orientation (if Verbalized by the Patient): Straight or Heterosexual Comments At the time of my signature, I reviewed and agree with the nursing past medical, surgical, social, and family history. There is no relevant family history pertinent to the patient complaint. Exam Const: General: cooperative, no acute distress, alert, anxious, uncomfortable and well nourished Nutritional Appearance: well nourished Orientation/consciousness: patient oriented x3 Limitations: no limitations HENMT: Head: normal to inspection Ears: external ears normal Face/Nose/Sinus: Normal external nose present, Normal nares present, normal facial exam, No erythema and No edema Face and sinus: normal facial exam, no e
== END 2024-02-20 12:37 | disposition short-term general hospital (02) ==
PROVIDERS: Emergency Provider Nurse Practitioner Family
DX: N76.0 Acute vaginitis (principal); L03.116 Cellulitis of left lower limb; M79.10 Myalgia, unspecified site; F17.210 Nicotine dependence, cigarettes, uncomplicated; I73.9 Peripheral vascular disease, unspecified
CPT/HCPCS: 99213; G0463

== ENCOUNTER 2024-03-12 17:03 | Emergency (ER) | payer OTHER, SELFPAY ==
[2024-03-12 17:15] VITALS: BP 153/91; PULSE 95; RESP 16; TEMP 36.6; O2SAT 99
--- NOTE | 2024-03-12 17:18 | ED.SKABFB ---
HPI - Skin/Abscess/Foreign Bdy General Chief complaint: Skin/Abscess/Foreign Body Stated complaint: Left ankle wound Time Seen by Provider: 03/12/24 17:19 Source: patient, RN notes reviewed and old records reviewed Mode of arrival: ambulatory Limitations: no limitations History of Present Illness HPI narrative: patient presents with complaints of worsening to her chronic left ankle wound. Patient with history of peripheral vascular disease, continues to smoke and vape, presents to [facility] with complaints of worsening to wound to left lateral ankle. She is unsure how she sustained the wound. It has been present intermittently for several months. Reports that it worsened approximately 1 month ago, she was put on cephalexin at that time. Has not been taking it as prescribed. Took approximately half of her course of antibiotics, began noticing worsening of drainage approximately 3 days ago. She is keeping the wound clean at home. She denies any fever, chills, sweats. She does have some discoloration to the toes of the affected foot, and the other foot as well. She reports that these changes are chronic and have been present for over 2 years. Related Data Allergies Allergy/AdvReac Type Severity Reaction Status Date / Time No Known Allergies Allergy Verified 07/16/23 14:49 Review of Systems Review of Systems: All systems reviewed & are unremarkable except as noted in HPI and below Constitutional: Constitutional: Reports no additional constitutional complaints ENT: Reports system reviewed and no additional complaints, except as documented Cardiovascular: Cardiovascular: Reports as per HPI and Reports no additional cardiovascular complaints Respiratory: Respiratory: Reports no additional respiratory complaints Gastrointestinal: Gastrointestinal: Reports no additional gastrointestinal complaints Integumentary/Breasts: Skin/Breast: Reports as per HPI Comments: Circular wound to left lateral malleolus, a small amount of purulent drainage. Chronic skin changes to bilateral feet PMFSH Past Medical History Medical History Ankle fracture, left Anxiety Depression Peripheral vascular disease Smoker in home Surgical History Surgical History History of axillary surgery Right axilla lymph node removal Family History Family History Father Alive and well Mother Peripheral vascular disease Social History Social History Smoking packs per day: 0.5 Smoking cigarettes per day: 10.0 Years smoked: 20 Smoking pack-years: 10.00 Smoking status: Current every day smoker Tobacco type: cigarettes Second hand tobacco smoke exposure: Yes Alcohol intake: former Alcohol use details: Aline says 5 years ago she stopped drinking Substance use: never Living arrangements: with family Occupation/Education: unemployed Gender identity (if verbalized by the patient): Female Sexual Orientation (if Verbalized by the Patient): Straight or Heterosexual Comments At the time of my signature, I reviewed and agree with the nursing past medical, surgical, social, and family history. There is no relevant family history pertinent to the patient complaint. Exam Const: General: cooperative, no acute distress, alert and awake Orientation/consciousness: oriented to person, oriented to place and oriented to time HENMT: Head: normal to inspection Resp: Effort & Inspection: normal respiratory effort and able to speak in complete sentences Auscultation: clear to auscultation bilaterally, no crackles, no rales, no rhonchi and no wheezes Cardio: Palpation: normal PMI Rate: regular rate Rhythm: regular rhythm Heart sounds: S1 normal heart sound present and S2 normal heart sound present Skin: General skin exam: No normal color ( ) Wounds:
== END 2024-03-12 17:40 | disposition home or self-care (01) ==
PROVIDERS: Emergency Provider Nurse Practitioner Family
DX: L03.116 Cellulitis of left lower limb (principal); F17.210 Nicotine dependence, cigarettes, uncomplicated; I73.9 Peripheral vascular disease, unspecified; F17.290 Nicotine dependence, other tobacco product, uncomplicated
CPT/HCPCS: 99213; G0463

== ENCOUNTER 2024-03-19 12:51 | Emergency (ER) | payer OTHER, MEDICAID, SELFPAY ==
[2024-03-19 13:01] VITALS: BP 133/85; PULSE 96; RESP 18; TEMP 36.4; O2SAT 99
--- NOTE | 2024-03-19 13:35 | ED.EYEPROB ---
HPI - Eye Problem General Chief complaint: Eye Problems Stated complaint: Right Eye Problem Time Seen by Provider: 03/19/24 13:35 Source: patient, RN notes reviewed and old records reviewed Mode of arrival: ambulatory Limitations: no limitations History of Present Illness HPI Narrative: 43 year old female presents to [facility] care with complaints of right eye irritation with redness and increased watering since yesterday, patient has redness to sclera and to conjunctiva with some mucoid drainage noted. Patient also has some sclera redness of left eye. Patient has false eye lashes on and eye make up to bilateral eyes. chief complaint: eye redness Onset (ago): day(s) (since yesterday) Onset description: gradual Location: both eyes Eye Symptoms: redness, discharge and other (watery) Severity scale (1-10): 7 Treatments Prior to Arrival: none Related Data Home Medications Medication Instructions Recorded Confirmed sulfamethoxazole 800 1 tablet PO BID 03/19/24 03/19/24 mg-trimethoprim 160 mg tablet Allergies Allergy/AdvReac Type Severity Reaction Status Date / Time No Known Allergies Allergy Verified 03/19/24 13:07 Review of Systems Review of Systems: CONSTITUTIONAL: Denies fever, chills, or sweats. EYES: Denies visual changes. Reports redness,, irritation, discharge increased watering of right eye with some redness noted to sclera of left ey with watering, some mucoid drainage of right eye. ENT: Denies rhinorrhea, congestion, sore throat, or otalgia. CARDIOVASCULAR: Denies chest pain, palpitations, or edema. RESPIRATORY: Denies cough or dyspnea. SKIN: Denies rash or itching. NEUROLOGIC: Denies headache All systems reviewed & are unremarkable except as noted in HPI and below PMFSH Past Medical History Medical History Ankle fracture, left Anxiety Depression Peripheral vascular disease Smoker in home Surgical History Surgical History History of axillary surgery Right axilla lymph node removal Family History Family History Father Alive and well Mother Peripheral vascular disease Social History Social History Smoking packs per day: 0.5 Smoking cigarettes per day: 10.0 Years smoked: 20 Smoking pack-years: 10.00 Smoking status: Current every day smoker Tobacco type: cigarettes Second hand tobacco smoke exposure: Yes Alcohol intake: former Alcohol use details: Aline says 5 years ago she stopped drinking Substance use: never Living arrangements: with family Occupation/Education: unemployed Gender identity (if verbalized by the patient): Female Sexual Orientation (if Verbalized by the Patient): Straight or Heterosexual Comments At time of signature, agree with nursing past medical, surgical, social and family history. There is no relevant family history pertinent to the presenting complaint Exam Narrative: GENERAL: Well-appearing, well-nourished, and in no acute distress. HEAD: Normocephalic, atraumatic. EYES: PERRLA and EOMI. Upper and lower eyelids unremarkable. No periorbital cellulitis noted. Sclera and conjunctivae injected right eye with watering and some mucoid drainage, left sclera reddened with watering also. Patient has false eye lashes on and eye make up instructed to take eye lashes off and make up and to no longer use while on eye drops, throw current away ENT: Nares clear, no rhinorrhea or epistaxis. Mucous membranes moist. NECK: Supple. no lymphadenopathy CHEST: Clear to auscultation. No respiratory distress.SAO2 99% on room air HEART: Regular rate and rhythm. No murmur heard. Normal peripheral pulses. SKIN: Warm, dry, no rash. NEURO: No focal deficits. Alert and oriented x3.anxious frigidity Course Course Emergency Course: Patient is aware of diagnosis, understands an
== END 2024-03-19 13:45 | disposition home or self-care (01) ==
PROVIDERS: Emergency Provider Registered Nurse
DX: H10.33 Unspecified acute conjunctivitis, bilateral (principal); F17.210 Nicotine dependence, cigarettes, uncomplicated; I73.9 Peripheral vascular disease, unspecified
CPT/HCPCS: 99213; G0463

== ENCOUNTER 2024-09-15 18:33 | Emergency (ER) | payer OTHER, SELFPAY ==
[2024-09-15 18:38] VITALS: BP 139/81; PULSE 101; RESP 32; TEMP 36.5; O2SAT 98
--- NOTE | 2024-09-15 18:56 | ED_ITS ---
HPI - Extremity Injury (Lower) General Chief Complaint: Extremity Injury, Lower Stated Complaint: left foot toe pain Source: patient Mode of arrival: ambulatory Limitations: no limitations History of Present Illness HPI Narrative: 44 y/o female with history of smoking and peripheral vascular disease presented for c/o left 4th toe wound. States she has poor circulation and a history of wounds to the feet. pt is s/p arterial stent placement 05/2024. However she says the 'symptoms are coming back' including pain and numbness to the foot. Today while sleeping she bumped the toe on something and resulted in bleeding to the toe. Has not cleaned the toe. States she has been told to have the toes amputated. Endorses foot is warm and pulse is present, she states he needs an antibiotic. Also admits to being homeless and living on [address] at this time. However, Her aunt and father provided transportation to the clinic today. Denies IVDA, however it is noted in her history. Related Data Home Medications ?Medication ?Instructions ?Recorded ?Confirmed ?Last Taken ?Type atorvastatin 40 mg tablet mg 09/15/24 Unknown History clopidogrel 75 mg tablet mg 09/15/24 Unknown History escitalopram oxalate 5 mg tablet mg 09/15/24 Unknown History Allergies Allergy/AdvReac Type Severity Reaction Status Date / Time No Known Allergies Allergy Verified 09/15/24 18:49 Review of Systems Review of Systems: CONSTITUTIONAL: Denies body aches, fever, chills, or sweats. EYES: Denies visual changes, redness, or discharge. ENT: Denies rhinorrhea, congestion Reports bilateral ear pressure CARDIOVASCULAR: Denies chest pain, palpitations, or edema. RESPIRATORY: Denies cough or dyspnea. GASTROINTESTINAL: Denies abdominal pain, nausea, vomiting, or diarrhea. SKIN: per HPI MUSCULOSKELETAL: Denies back pain, joint pain, or myalgia. NEUROLOGIC: reports left foot numbness, tingling PMFSH Past Medical History Medical History Smoker in home Depression Anxiety Ankle fracture, left Peripheral vascular disease Surgical History Surgical History History of axillary surgery Right axilla lymph node removal Family History Family History Father Alive and well Mother Peripheral vascular disease Social History Social History Smoking packs per day: 0.5 Smoking cigarettes per day: 10.0 Years smoked: 20 Smoking pack-years: 10.00 Smoking status: Current every day smoker Tobacco type: cigarettes Second hand tobacco smoke exposure: Yes Alcohol intake: former Alcohol use details: Aline says 5 years ago she stopped drinking Substance use: never Living arrangements: with family Occupation/Education: unemployed Gender identity (if verbalized by the patient): Female Sexual Orientation (if Verbalized by the Patient): Straight or Heterosexual Comments At time of signature, I have reviewed and agree with nursing past medical, surgical, social and family history unless otherwise noted. Please see nursing chart for further information. There is no relevant family history pertinent to the presenting complaint Exam Narrative: GENERAL: Well-appearing HEAD: Left eyebrow abrasion with yellow bruising to left eye EYES: conjunctivae clear, and EOMI. ENT: Mucous membranes moist. Oropharynx without edema, erythema or lesions. bilateral ears erythematous, dry and scaly with mild swelling to canals, no drainage, no tragal tenderness NECK: Supple. No lymphadenopathy CHEST: Clear to auscultation. HEART: Regular rate and rhythm. SKIN: Warm, dry. Left foot 4th toe Swelling, erythematous, oozing purulent drainage around what appears to be the nail base, tender. Purple discoloration to the toes of the left foot, skin is warm, pedal pulse palpable CMS intact. NEURO: Anxious. Alert and oriented x3. Course Course Emergency Course: Patient is aware of diagnosis, understands and agrees to treatment plan. Anticipatory guidance given. Patient agrees to follow-up as directed and is aware of reasons to seek care at the emergency department. Portions of this record may have been created with voice recognition software Level of Care: Express Care Visit Vital Signs Vital signs: Vital Signs Temperature 97.7 F 09/15/24 18:38 Pulse Rate 101 H 09/15/24 18:38 Respiratory Rate 32 H 09/15/24 18:38 Blood Pressure 139/81 09/15/24 18:38 Pulse Oximetry 98 09/15/24 18:38 Oxygen Delivery Room Air 09/15/24 18:38 Temperature 97.7 F 09/15/24 18:38 Pulse Rate 101 H 09/15/24 18:38 Respiratory Rate 32 H 09/15/24 18:38 Blood Pressure 139/81 09/15/24 18:38 Pulse Oximetry 98 09/15/24 18:38 Oxygen Delivery Room Air 09/15/24 18:38 Reviewed Transfer Transfered to: [facility]) Transportation: Other ( private vehicle) Transfer rationale: Pt is agreeable to transfer. Requests transfer to [facility] via private vehicle. Risks of transportation reviewed with pt including injury, worsening of condition and . v/u. family will be driving pt; Report called to hospital, spoke with Lucina BARRIENTOS, Dr Karimi, accepting physician. Pt is in stable condition at time of transfer. Advised to remain NPO and go directly to the hospital. MDM - Extremity Injury (Lower) MDM Narrative Medical decision making narrative: advised ER transfer for reports of pain, numbness and tingling returning, given her history of peripheral vascular diseaseand states she is homeless. Differential Diagnosis Differential diagnosis: Likely other ( Abscess, abrasion, avulsion, cellulitis, osteomyelitis) Discharge Plan Discharge Clinical Impression: Cellulitis of fourth toe Qualifiers: Laterality: left Qualified Code(s): L03.032 - Cellulitis of left toe Patient Disposition: Acute Care Hospital Condition: Stable Patient Language: Lebanese Prescriptions: No Action atorvastatin 40 mg tablet clopidogrel 75 mg tablet escitalopram oxalate 5 mg tablet Follow-up/Referrals: PHYSICIAN,COURT REPORTER [Primary Care Provider] - Time of Disposition: 19:29
--- NOTE | 2024-09-15 19:26 | PC.NURSE ---
requested to [facility] for higher level of care.
--- NOTE | 2024-09-15 19:27 | PC.NURSE ---
wound to left 4 th toe after director inpatient headache program cleansed off dried blood was very small but did have some yellow drainage.
== END 2024-09-15 19:29 | disposition short-term general hospital (02) ==
PROVIDERS: Emergency Provider Nurse Practitioner Family
DX: L03.032 Cellulitis of left toe (principal); F17.210 Nicotine dependence, cigarettes, uncomplicated; F41.8 Other specified anxiety disorders; I73.9 Peripheral vascular disease, unspecified
CPT/HCPCS: 99212; G0463

== ENCOUNTER 2025-01-24 14:05 | Emergency (ER) | payer OTHER, SELFPAY ==
[2025-01-24 14:08] VITALS: BP 143/87; PULSE 100; RESP 18; TEMP 37.6; O2SAT 99
--- NOTE | 2025-01-24 14:09 | ED_ITS ---
HPI - Skin/Abscess/Foreign Bdy General Chief complaint: Skin/Abscess/Foreign Body Stated complaint: knot in groin area Time Seen by Provider: 01/24/25 14:21 Source: patient and RN notes reviewed Mode of arrival: ambulatory Limitations: dementia History of Present Illness HPI narrative: 44-year-old female presents concern for swelling and pain in her groin. Reports she had a small area that looked like a pimple and then the next day it was swollen tender. She denies any drainage from the area MD complaint: other (Redness) Related Data Allergies Allergy/AdvReac Type Severity Reaction Status Date / Time No Known Allergies Allergy Verified 01/24/25 14:14 Review of Systems Review of Systems: CONSTITUTIONAL: Denies malaise, chills, sweats, or fever. EYES: Denies redness, or discharge. ENT: Denies rhinorrhea, congestion, swollen lips, swollen tongue CARDIOVASCULAR: Denies chest pain, palpitations, or edema. RESPIRATORY: Denies cough or dyspnea. GASTROINTESTINAL: Denies abdominal pain, nausea, vomiting SKIN: Reports redness, swelling, tenderness to the left labia. Denies purulent drainage, vesicles, bullae, numbness, pain beyond proportion MUSCULOSKELETAL: Denies joint pain or myalgia. NEUROLOGIC: Denies headache. All systems reviewed & are unremarkable except as noted in HPI and below PMFSH Past Medical History Medical History Smoker in home Depression Anxiety Ankle fracture, left Peripheral vascular disease Surgical History Surgical History History of axillary surgery Right axilla lymph node removal Family History Family History Father Alive and well Mother Peripheral vascular disease Social History Social History Smoking packs per day: 0.5 Smoking cigarettes per day: 10.0 Years smoked: 20 Smoking pack-years: 10.00 Smoking status: Current every day smoker Tobacco type: cigarettes Second hand tobacco smoke exposure: Yes Alcohol intake: former Alcohol use details: Aline says 5 years ago she stopped drinking Substance use: never Living arrangements: with family Occupation/Education: unemployed Gender identity (if verbalized by the patient): Female Sexual Orientation (if Verbalized by the Patient): Straight or Heterosexual Comments At time of signature, agree with nursing past medical, surgical, social and family history. There is no relevant family history pertinent to the presenting complaint Exam Narrative: GENERAL: Well-appearing, well-nourished, and in no acute distress. HEAD: Normocephalic, atraumatic. EYES: PERRLA, conjunctivae clear ENT: Mucous membranes moist. NECK: Supple. No lymphadenopathy CHEST: Clear to auscultation. No respiratory distress. HEART: Regular rate and rhythm. SKIN: Warm, dry. Erythema, induration, tenderness, warmth with sharp margins of fluctuation noted noted to the left labia. No vesicles, bullae, necrosis, ecchymosis, crepitus noted. NEURO: Alert and oriented x3. PSYCH: Normal mood and affect Course Course Emergency Course: Patient is aware of diagnosis, understands and agrees to treatment plan. Anticipatory guidance given. Patient agrees to follow-up as directed and is aware of reasons to seek care at the emergency department. Portions of this record may have been created with voice recognition software Level of Care: Express Care Visit Vital Signs Vital signs: Reviewed. Procedures Abscess I/D bartholin's gland: Date of Incision: 01/24/25 Time of Incision: 14:55 Side (if applicable): left Local Anesthetic: lidocaine 1% Amount of anesthesia used (mL): 6 Technique: incised with #11 blade Irrigation: No Packing used?: none I&D Results: Other (fluid) Complications: pain MDM - Skin/Abscess/Foreign Bdy MDM Narrative Medical decision making narrative: I evaluated this in the express care. History is obtained from patient who is an independent historian and physical exam was performed. Available medical records were reviewed. Exam findings and relevant testing show no acute concerns or changes; patient is non-toxic appearing and is in no distress. No risk factors or findings concerning for epidural abscess, diskitis, vertebral osteomyelitis, cord compression, cauda equina, vertebral fracture or bone malignancy, AAA, or pyelonephritis. Patient instructed to consider further imaging and workup through their primary care physician as an outpatient if symptoms persist. Does not appear at this time to be erythema multiforme, bullous, SJS, TEN; no evidence at this time to suggest RMSF, NSTI, endocarditis or Lyme disease; patient looks well, nontoxic and is tolerating oral intake; no neurologic signs or symptoms; no headache, photophobia or neck pain; afebrile. Patient does not have history of of penetrating trauma, laceration, blunt trauma, recent surgery, immunosuppression, malignancy, obesity, alcoholism, corticosteroid use. Discussed the importance of follow-up, patient agrees; question, cellulitis versus necrotizing soft tissue infection versus abscess. Patient is appropriate for outpatient treatment and follow-up. Critical Care Time Critical Care Time Critical Care Time: No Discharge Plan Discharge Clinical Impression: Bartholin's gland infection Patient Disposition: Home Condition: Stable Instructions: Antibiotic Form, Incision and Drainage (ED) Additional Instructions: Please follow up with your Primary Care Doctor within 48-72 hours - call for an appointment. Rest and elevate affected area; apply moist heat 3-4 times daily for 10-15 minutes. Take tramadol as directed for pain. Please take Antibiotics as directed. If you experience any worsening redness, swelling, streaking (red lines), fever or chills please go to the ER Patient Language: French Prescriptions: New sulfamethoxazole-trimethoprim 800-160 mg tablet 1 tablet PO Q12H 7 Days Qty: 14 0RF tramadol 50 mg tablet 50 mg PO Q6H PRN (Reason: pain) Qty: 10 0RF Follow-up/Referrals: UNKNOWN,DOCTOR [Primary Care Provider] - Time of Disposition: 15:06
--- OUTSIDE RECORDS SUMMARY | 2025-01-24 14:15 | XMS_ITS | Referral Summary ---
Author Organization [facility] Address [address] [place] [address] Care Team Providers Care Sat Act Instructor Name Role Phone Rylan Shea MD Unavailable [phone] John Yeh DPM Unavailable [phone] Quentin Dumont NP Primary Care Provider Encounters Date Type Department Care Team Description 01/12/2025 11:39 AM CDT - 01/12/2025 11:59 PM CDT Hospital Encounter [facility] Emergency, Room R Discharge Disposition: Discharge to home or self care 12/31/2024 10:21 PM CDT - 01/01/2025 11:38 AM CDT Hospital Encounter [facility] [address] [place] [address] Kaitlin Reynolds MD Petters, Ekanga Sunday, MD Sargsyan, Narine, MD Cellulitis of lower extremity, unspecified laterality (Primary Dx); Elevated liver enzymes Discharge Disposition: Left Against Medical Advice from Last 3 Months Allergies No known active allergies Medications atorvastatin (LIPITOR) 40 mg tablet Take 1 tablet (40 mg total) by mouth nightly 30 tablet 4 Active escitalopram (LEXAPRO) 5 mg tablet Take 1 tablet (5 mg total) by mouth daily 30 tablet 4 Active hydrOXYzine (ATARAX) 25 mg tablet Take 1 tablet (25 mg total) by mouth every 8 (eight) hours as needed for anxiety 60 tablet 4 Active clopidogreL (PLAVIX) 75 mg tablet Take 1 tablet (75 mg total) by mouth daily 30 tablet 11 4 025 Active acetaminophen 500 mg capsule Take 2 capsules (1,000 mg total) by mouth every 6 (six) hours as needed for pain 24 capsule 4 Active oxyCODONE (ROXICODONE) 5 mg immediate release tabletIndications:P ain Take 1 tablet (5 mg total) by mouth every 8 (eight) hours as needed for pain 15 tablet 4 Active rivaroxaban (XARELTO) 20 mg tabletIndications:a rterial thromboembolism Take 1 tablet (20 mg total) by mouth daily with breakfast 30 tablet 3 4 Active Active Problems Problem Noted Date Diagnosed Date Cellulitis of lower extremity, unspecified later ality 01/01/2025 Class 1 obesity due to excess calories in adult 01/01/2025 Arterial occlusion 06/20/2024 Open wound of left foot 06/20/2024 Assessment & Plan (06/20/2024 6:33 AM CDT): - Patient with left 4th toe wound and left lateral foot ankle ulceration. Recently treated at [facility], [place] for possible cellulitis (vanc and cefepime, discharged on 10 day of doxycyline) following left kissing iliac stents. Follows with outpatient wounds care. Seen by Dr. Yeh at [facility], [place] 06/10. - Continue wound care (wound cleanser, pat dry, apply nickel thickness Santyl ointment and cover with guaze dressing) Anxiety and depression 06/20/2024 Assessment & Plan (06/20/2024 6:33 AM CDT): - discharged on lexapro and atarax last admission, continue. 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 Now presents with cold LLE. 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 Kissing balloon angioplasty bilateral MARTA 9mm balloons and kissing stents. 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 No 01/01/2025 Social Connection and Isolation Panel [NHANES] A nswer Date Recorded In a typical week, how many times do you talk on the phone with family, friends, or neighbors? Once a week 01/01/2025 How often do you get together with friends or re latives? Once a week 01/01/2025 How often do you attend hindu or yazdanism serv ices? Never 01/01/2025 Do you belong to any clubs o r organizations such as hindu groups, unions, fraternal or athletic groups, or school groups? No 01/01/2025 How often do you attend meet ings of the clubs or organizations you belong to? Never 01/01/2025 Are you , , di vorced, , never , or living with a partner? Never 01/01/2025 AUDIT-C Answer Date Recorded Q1: How often do you have a drink containing alcohol? Never 01/01/2025 Q2: How many drinks containi ng alcohol do you have on a typical day when you are drinking? Patient does not drink Q3: How often do you have si x or more drinks on one occasion? Never 01/01/2025 Overall Financial Resource Strain (CARDIA) Answe r Date Recorded How hard is it for you to pa y for the very basics like food, housing, medical care, and heating? Hard 01/01/2025 PHQ-2 Answer Date Recorded PHQ-2 Total Score 2 06/21/2024 Hunger Vital Sign Answer Date Recorded Within the past 12 months, y ou worried that your food would run out before you got the money to buy more. Sometimes true Within the past 12 months, t he food you bought just didn't last and you didn't have money to get more. Sometimes true PRAPARE - Transportation Answer Date Re corded In the past 12 months, has l ack of transportation kept you from medical appointments or from getting medications? Yes 12/13 In the past 12 months, has l ack of transportation kept you from meetings, work, or from getting things needed for daily living? Yes 01/01/2025 Housing Stability Vital Sign Answer Chucky e Recorded In the last 12 months, was t here a time when you were not able to pay the mortgage or rent on time? Yes 01/01/2025 In the past 12 months, how m any times have you moved where you were living? 1 01/01/2025 At any time in the past 12 m [facility], were you homeless or living in a group home (including now)? No 01/01/2025 Personal Safety Answer Date Recorded Have you ever been in or are you currently in a harmful physical or emotional relationship or is someone making you feel afraid or unsafe? 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 Gender Identity Not on file Sexual Orientation Not on file Last Filed Vital Signs Vital Sign Reading Time Taken Comments Blood Pressure 131/72 01/01/2025 8:33 AM CDT Pulse 79 01/01/2025 8:33 AM CDT Temperature 36.4 C (97.6 F) 01/01/2025 8:33 AM CDT Respiratory Rate 18 01/01/2025 8:33 AM CDT Oxygen Saturation 97% 01/01/2025 8:33 AM CDT Inhaled Oxygen Concentration - - Weight 96.7 kg (213 lb 3 oz) 01/01/2025 1:34 AM CDT Height 170.2 cm (5' 7 ) 01/01/2025 1:34 AM CDT Body Mass Index 33.39 01/01/2025 1:34 AM CDT Plan of Treatment Not on file Medical Devices Implanted Type Area Cracker Off Device Identifier Shelf Expiration Date Model / Serial / Lot [employer] Stent Graft Endoprosthesis Reduced Profile Straight Heparin Coated Viabahn [id number] - [id number] - [id number] Implanted:Qty: 1 on 06/20/2024 by Rylan Seha MD at [facility] Stent Left: Iliac [employer] [id number] 04/03/2027 [id number] / [id number] / [employer] Stent Graft Endoprosthesis Reduced Profile Straight Heparin Coated Viabahn [id number] - [id number] - [id number] Implanted:Qty: 1 on 06/20/2024 by Rylan Shea MD at [facility] Stent Left: Iliac [employer] [id number] 04/03/2027 [id number] / [id number] / [employer] Protege Gps Exprt 9mm .079in 60mm 80cm Otw Delivery System Self [id number] - [id number] Implanted:Qty: 1 on 06/20/2024 by Rylan Shea MD at [facility] Stent Left: Iliac [employer] [id number] 11/19/2026 [id number] [id number] / / [id number] [employer] Visi-Pro 8mm 17mm 80cm Radiopaque Balloon Expand Radial Strength - [id number] Implanted:Qty: 1 on 06/20/2024 by Rylan Shea MD at [facility] Stent Right: Iliac [employer] [id number] 10/08/2026 [id number] / / [id number] [employer] Device Vascular Closure Femoral Artery Bioabsorbable Dual Method Vascade 6-7fr Collagen [id number] - [id number] Implanted:Qty: 1 on 06/20/2024 by Rylan Shea MD at [facility] Vascular Closure Device Right: Groin [employer] [id number] 10/12/2025 [id number] -[id number] / / [id number] [employer] [facility] Lifestream 9mm 58mm 80cm Balloon Expandable Low Profile Cover [id number] - [id number] Implanted:Qty: 1 on 06/09/2024 by Rylan Shea MD at [facility] [id number] / / [employer] Peripheral Vascular Lifestream 9mm 58mm 80cm Balloon Expandable Low Profile Cover [id number] - [id number] Implanted:Qty: 1 on 06/09/2024 by Rylan Shea MD at [facility] 09/12/2025 [id number] / / [id number] Med[employer] Visi-Pro 8mm 37mm 135cm Radiopaque Balloon Expand Radial Strength - [id number] Implanted:Qty: 1 on 06/09/2024 by Rylan Shea MD at [facility] [employer] 03/03/2026 [id number] -[id number] / / [id number] [employer] Device Vascular Closure Femoral Artery Bioabsorbable Dual Method Vascade 6-7fr Collagen [id number] - [id number] Implanted:Qty: 1 on 06/09/2024 by Rylan Shea MD at [facility] [employer] 01/03/2026 [id number] -[id number] / / [id number] [employer] Device Vascular Closure Femoral Artery Bioabsorbable Dual Method Vascade 6-7fr Collagen [id number] - [id number] Implanted:Qty: 1 on 06/09/2024 by Rylan Shea MD at [facility] [employer] 12/14/2025 [id number] -[id number] / / [id number] Procedures Procedure Name Priority Date/Time Associated Diagnosis Comments US VEIN DUPLEX LOWER EXTREMITY BILATERAL COMPLETE ED 01/01/2025 11:02 AM CDT EGFR Routine 01/01/2025 7:05 AM CDT DIFFERENTIAL AUTO Routine 01/01/2025 7:0 5 AM CDT COMPREHENSIVE METABOLIC PANEL Routine 01/01/2025 7:05 AM CDT CBC WITH AUTO DIFFERENTIAL Routine 01/01/2025 7:05 AM CDT SEPSIS LACTATE WITH REFLEX Timed 01/01/2025 7:05 AM CDT BLOOD CULTURE STAT 01/01/2025 12:32 AM CDT EGFR STAT 12/31/2024 10:51 PM CDT DIFFERENTIAL AUTO STAT 12/31/2024 10: 51 PM CDT SEPSIS LACTATE WITH REFLEX STAT 12/31/2024 10:51 PM CDT COMPREHENSIVE METABOLIC PANEL STAT 12/31/2024 10:51 PM CDT CBC WITH AUTO DIFFERENTIAL STAT 12/31/2024 10:51 PM CDT BLOOD CULTURE STAT 12/31/2024 10:51 PM CDT from Last 3 Months Results * US Vein Duplex Lower Extremity Bilateral Complete (01/01/2025 11:02 AM CDT) Anatomical Region Laterality Modality Vascular Bilateral Ultrasound 01/01/2025 11:1 8 AM CDT Narrative 01/01/2025 11:20 AM CDT EXAM DESCRIPTION: US VEIN DUPLEX LOWER EXTREMITY BILATERAL COMPLETE REASON FOR STUDY: Localized Edema Bilateral leg swelling and ankle redness for 3-4 days. TECHNIQUE: Grayscale, color and spectral Doppler imaging of the deep venous system of the bilateral lower extremities was performed. Images stored on PACS. COMPARISON: None FINDINGS: The bilateral common femoral, superficial femoral, and popliteal veins are readily compressible with no intraluminal thrombus on mobley scale images. There is normal color and spectral Doppler signal, including augmentation. The bilateral greater saphenous veins appear patent. Visualized calf veins are patent. There is mild bilateral lower extremity subcutaneous soft tissue edema. IMPRESSION: No definite evidence of a deep venous thrombosis in the bilateral lower extremity venous systems. Mild bilateral lower extremity subcutaneous soft tissue edema. THIS IS AN ELECTRONICALLY VERIFIED FINAL REPORT 01/01/2025 11:20 AM - Electronically signed by Jaycee Romero D.O. PS: ALESSANDRA Report ID: [id number] Reading Location: [id number] Procedure Note Jaycee Romero, DO - 01/01/2025 EXAM DESCRIPTION: US VEIN DUPLEX LOWER EXTREMITY BILATERAL COMPLETE REASON FOR STUDY: Localized Edema Bilateral leg swelling and ankle redness for 3-4 days. TECHNIQUE: Grayscale, color and spectral Doppler imaging of the deepvenous system of the bilateral lower extremities was performed. Images stored onPACS. COMPARISON: None FINDINGS: The bilateral common femoral, superficial femoral, and popliteal veins are readily compressible with no intraluminal thrombus on mobley scale images. There is normal color and spectral Doppler signal, including augmentation. The bilateral greater saphenous veins appear patent. Visualized calfveins are patent. There is mild bilateral lower extremity subcutaneous softtissue edema. IMPRESSION: No definite evidence of a deep venous thrombosis in the bilateral lower extremity venous systems. Mild bilateral lower extremity subcutaneous soft tissue edema. THIS IS AN ELECTRONICALLY VERIFIED FINAL REPORT 01/01/2025 11:20 AM - Electronically signed by Jaycee Romero D.O. PS: PS Report ID: [id number] Reading Location: [id number] us Kaitlin Reynolds MD IMG US PROCEDURES Final Result * Sepsis Lactate w/ Reflex (01/01/2025 7:05 AM CDT) Sepsis Lactate 1.5 0.7 - 2.0 mmol/L Blood 01/01/2025 7:05 AM CDT 01/01/2025 7:16 AM CDT us Kaitlin Reynolds MD LAB BLOOD ORDERABLES Final Resul t [facility] ([place]) [facility] Department [place] [address] * eGFR (01/01/2025 7:05 AM CDT) eGFR >90 >=60 mL/min/1. 73 m2 Comment: Interpretive Data Reference Interval Normal >/= 90 mL/min/1.73m2 Mildly decreased* 60 - 89 mL/min/1.73m2 Mildly to moderately decreased 45 - 59 mL/min/1.73m2 Moderately to severely decreased 30 - 44 mL/min/1.73m2 Severely decreased 15 - 29 mL/min/1.73m2 Kidney Failure < 15 mL/min/1.73m2 *Relative to young adult level Estimated glomerular filtration rate is determined by the 2020 CKD-EPI equation recommended by the National Kidney Foundation (A Unifying Approach to GFR Estimation: Recommendations of the NKF-ASK Task Force on Reassessing the Inclusion of Race in Diagnosing Kidney Disease, JASN 2020). The CKD-EPI equation should not be used for patients with unstable renal function and has not been validated in children and those over 70. Current interpretive data was last reviewed 2021. Blood 01/01/2025 7:05 AM CDT 01/01/2025 7:16 AM CDT us Kaitlin Reynolds MD LAB BLOOD ORDERABLES Final Resul t [facility] ([place] 1 [facility] Department [place] [address] * Differential, auto (01/01/2025 7:05 AM CDT) Neutrophil abs 4.47 1.50 - 6.50 K/cumm Imm gran abs 0.07 0.00 - 0.10 K/cumm [facility] ([place]) Lymphocyte abs 2.05 0.80 - 3.30 K/cumm [facility] ([place]) Monocyte abs 0.75 0.20 - 0.80 K/cumm [facility] ([place]) Eosinophil abs 0.17 0.00 - 0.50 K/cumm [facility] ([place]) Basophil abs 0.05 0.00 - 0.10 K/cumm [facility] ([place]) Neutrophil pct 59.2 % [facility] ([place]) Comment: Interpretive Data Percent cell count reference ranges are not reported, since discordance with absolute values may lead to misinterpretation of CBC data. Current Interpretive Data was last revised on 2017. Imm gran pct 0.9 % [facility] ([place]) Comment: Interpretive Data Percent cell count reference ranges are not reported, since discordance with absolute values may lead to misinterpretation of CBC data. Current Interpretive Data was last revised on 2017. Lymphocyte pct 27.1 % [facility] ([place]) Comment: Interpretive Data Percent cell count reference ranges are not reported, since discordance with absolute values may lead to misinterpretation of CBC data. Current Interpretive Data was last revised on 2017. Monocyte pct 9.9 % [facility] ([place]) Comment: Interpretive Data Percent cell count reference ranges are not reported, since discordance with absolute values may lead to misinterpretation of CBC data. Current Interpretive Data was last revised on 2017. Eosinophil pct 2.2 % [facility] ([place]) Comment: Interpretive Data Percent cell count reference ranges are not reported, since discordance with absolute values may lead to misinterpretation of CBC data. Current Interpretive Data was last revised on 2017. Basophil pct 0.7 % [facility] ([place]) Comment: Interpretive Data Percent cell count reference ranges are not reported, since discordance with absolute values may lead to misinterpretation of CBC data. Current Interpretive Data was last revised on 2017. Blood 01/01/2025 7:05 AM CDT 01/01/2025 7:16 AM CDT us Kaitlin Reynolds MD LAB BLOOD ORDERABLES Final Resul t Performing Organization Address City/[facility] Co de Phone Number [facility] ([place]) [facility] Department [place] [address] * (ABNORMAL) CBC with auto differential (01/01/2025 7:05 AM CDT) WBC 7.56 3.80 - 9.90 K/cumm Hgb 14.3 11.9 - 15.5 g/dL [facility] ([place]) Hct 42.4 35.6 - 45.5 % [facility] ([place]) Plt 119(L) 150 - 400 K/cumm [facility] ([place]) MPV 10.4 9.1 - 12.3 fL [facility] ([place]) RBC 4.62 3.90 - 5.20 M/cumm [facility] ([place]) MCV 91.8 81.3 - 96.4 fL [facility] ([place]) MCH 31.0 27.1 - 33.3 pg [facility] ([place]) MCHC 33.7 32.3 - 35.7 g/dL [facility] ([place]) RDW CV 13.2 11.1 - 14.9 % [facility] ([place]) RDW SD 44.6 35.7 - 48.1 fL [facility] ([place]) NRBC abs 0.00 0.00 - 0.01 K/cumm [facility] ([place]) Blood 01/01/2025 7:05 AM CDT 01/01/2025 7:16 AM CDT us Kaitlin Reynolds MD LAB BLOOD ORDERABLES Final Resul t [facility] ([place]) [facility] Department [place] [address] * (ABNORMAL) Comprehensive metabolic panel (01/01/2025 7:05 AM CDT) Sodium 136 135 - 145 mmol/L Potassium, pl 3.9 3.3 - 4.9 mmol/L [facility] ([place]) Comment:Moderately Hemolyzed Specimen. Results may be affected. Chloride 104 97 - 110 mmol/L [facility] ([place]) CO2 21(L) 22 - 32 mmol/L [facility]) Anion gap 11 2 - 15 mmol/L [facility]) BUN 8 6 - 25 mg/dL [facility] ([place]) Creatinine 0.54(L) 0.60 - 1.10 mg/dL [facility] ([place]) Glucose 131 70 - 199 mg/dL [facility] ([place]) Comment: Interpretive Data Fasting glucose >/= 126 mg/dl is diagnostic for diabetes. Fasting is defined as no caloric intake for at least 8 hours. Fasting glucose between 100 mg/dl to 125 mg/dl is diagnostic of prediabetes. In a patient with classic symptoms of hyperglycemia or hyperglycemic crisis, a random glucose >/= 200 mg/dl is diagnostic for diabetes. In the absence of unequivocal hyperglycemia, results should be confirmed by repeat testing. The classification and Diagnosis of Diabetes Diabetes Care 2021; 46: S19-S40. Current interpretive data was last revised 2022. Calcium 8.2(L) 8.5 - 10.3 mg/dL [facility]) Bilirubin, total 0.4 0.1 - 1.2 mg/dL [facility] ([place]) Protein, pl 6.3(L) 6.5 - 8.5 g/dL [facility] ([place]) Albumin 3.1(L) 3.5 - 5.0 g/dL [facility] ([place]) Alk phos 109 40 - 130 Units/L [facility] ([place]) ALT 168(H) 7 - 45 Units/L [facility] ([place]) Comment: Hemolysis present. Results may be affected. Moderately Hemolyzed Specimen AST 101(H) 10 - 45 Units/L [facility] ([place]) Comment: Hemolysis present. Results may be affected. Moderately Hemolyzed Specimen Blood 01/01/2025 7:05 AM CDT 01/01/2025 7:16 AM CDT Kaitlin Reynolds MD LAB BLOOD ORDERABLES Final Resul t [facility] ([place]) 1 [facility] Department [place] [address] * Blood culture Blood Peripheral (01/01/2025 12:32 AM CDT) Report Final Report: No growth Comment:Testing performed by : [facility], [address] [place] [address] Blood (Peripheral) 01/01/2025 12:32 AM CDT 01/01/2025 7:33 AM CDT Narrative [facility] ([place]) - 01/05/2025 12:00 PM CDT From a different site than #1. Draw Blood cultures before administration of Antibiotics Collection->Peripheral 1. Blood cultures are incubated for 4 days on a continuously monitored blood culture system. The first report of a negative culture is issued within 24 hours of receipt of the specimen in the laboratory. 2. Positive culture results are reported as soon as they are detected. 3. The most important factor for detection of microbes in the setting of bloodstream infection is the volume of blood submitted for culture. Failure to collect an optimal blood volume can result in false negative blood cultures. 4. For pediatric patients, the recommended blood volume to collect follows a weight based strategy. See the electronic test catalog for collection instructions. 5. For positive blood cultures, a rapid molecular test may be performed for organism identification using the alena ePlex blood culture identification panel for gram positive (BCID-GP) and gram negative (BCID-GN) organisms. This nucleic acid amplification test detects microbial DNA in positive blood culture broth. This assay has been cleared by the [place] Food and Drug Administration and its performance characteristics have been verified by the [facility] Microbiology [facility]. For questions about this culture, contact the Microbiology Laboratory at [phone]. Interpretive data was last revised on 24. Kaitlin Reynolds MD LAB MICROBIOLOGY - GENERAL ORDER ANIYA Final Result [facility] ([place]) [address] [facility] [place] [address] * (ABNORMAL) Sepsis Lactate w/ Reflex (12/31/2024 10:51 PM CDT) Sepsis Lactate 2.6(H) 0.7 - 2.0 mmol/L Blood 12/31/2024 10:5 1 PM CDT 12/31/2024 10:55 PM CDT Kaitlin Reynolds MD LAB BLOOD ORDERABLES Final Resul t Performing Organization Address City/[facility] Co de Phone Number [facility] ([place]) [address] [facility] [place] [address] * eGFR (12/31/2024 10:51 PM CDT) eGFR >90 >=60 mL/min/1. 73 m2 Comment: Interpretive Data Reference Interval Normal >/= 90 mL/min/1.73m2 Mildly decreased* 60 - 89 mL/min/1.73m2 Mildly to moderately decreased 45 - 59 mL/min/1.73m2 Moderately to severely decreased 30 - 44 mL/min/1.73m2 Severely decreased 15 - 29 mL/min/1.73m2 Kidney Failure < 15 mL/min/1.73m2 *Relative to young adult level Estimated glomerular filtration rate is determined by the 2020 CKD-EPI equation recommended by the National Kidney Foundation (A Unifying Approach to GFR Estimation: Recommendations of the NKF-ASK Task Force on Reassessing the Inclusion of Race in Diagnosing Kidney Disease, JASN 2020). The CKD-EPI equation should not be used for patients with unstable renal function and has not been validated in children and those over 70. Current interpretive data was last reviewed 2021. Blood 12/31/2024 10:5 1 PM CDT 12/31/2024 10:57 PM CDT us Kaitlin Reynolds MD LAB BLOOD ORDERABLES Final Resul t [facility] ([place]) 1 [facility] Department [place] [address] * (ABNORMAL) Differential, auto (12/31/2024 10:51 PM CDT) Neutrophil abs 6.91(H) 1.50 - 6.50 K/cumm Imm gran abs 0.05 0.00 - 0.10 K/cumm [facility] ([place]) Lymphocyte abs 2.29 0.80 - 3.30 K/cumm [facility] ([place]) Monocyte abs 0.96(H) 0.20 - 0.80 K/cumm [facility] ([place]) Eosinophil abs 0.11 0.00 - 0.50 K/cumm [facility] ([place]) Basophil abs 0.06 0.00 - 0.10 K/cumm [facility] ([place]) Neutrophil pct 66.5 % [facility] ([place]) Comment: Interpretive Data Percent cell count reference ranges are not reported, since discordance with absolute values may lead to misinterpretation of CBC data. Current Interpretive Data was last revised on 2017. Imm gran pct 0.5 % [facility] ([place]) Comment: Interpretive Data Percent cell count reference ranges are not reported, since discordance with absolute values may lead to misinterpretation of CBC data. Current Interpretive Data was last revised on 2017. Lymphocyte pct 22.1 % [facility] ([place]) Comment: Interpretive Data Percent cell count reference ranges are not reported, since discordance with absolute values may lead to misinterpretation of CBC data. Current Interpretive Data was last revised on 2017. Monocyte pct 9.2 % [facility] ([place]) Comment: Interpretive Data Percent cell count reference ranges are not reported, since discordance with absolute values may lead to misinterpretation of CBC data. Current Interpretive Data was last revised on 2017. Eosinophil pct 1.1 % [facility] ([place]) Comment: Interpretive Data Percent cell count reference ranges are not reported, since discordance with absolute values may lead to misinterpretation of CBC data. Current Interpretive Data was last revised on 2017. Basophil pct 0.6 % [facility] ([place]) Comment: Interpretive Data Percent cell count reference ranges are not reported, since discordance with absolute values may lead to misinterpretation of CBC data. Current Interpretive Data was last revised on 2017. Blood 12/31/2024 10:5 1 PM CDT 12/31/2024 10:55 PM CDT us Kaitlin Reynolds MD LAB BLOOD ORDERABLES Final Resul t [facility] ([place]) 1 [facility] [place] [address] * (ABNORMAL) CBC with auto differential (12/31/2024 10:51 PM CDT) WBC 10.38(H) 3.80 - 9.90 K/cumm Hgb 15.8(H) 11.9 - 15.5 g/dL [facility] ([place]) Hct 45.4 35.6 - 45.5 % [facility] ([place]) Plt 148(L) 150 - 400 K/cumm [facility] ([place]) MPV 10.5 9.1 - 12.3 fL [facility] ([place]) RBC 5.06 3.90 - 5.20 M/cumm [facility] ([place]) MCV 89.7 81.3 - 96.4 fL [facility] ([place]) MCH 31.2 27.1 - 33.3 pg [facility] ([place]) MCHC 34.8 32.3 - 35.7 g/dL [facility] ([place]) RDW CV 12.9 11.1 - 14.9 % [facility] ([place]) RDW SD 42.5 35.7 - 48.1 fL [facility] ([place]) NRBC abs 0.00 0.00 - 0.01 K/cumm [facility] ([place]) Blood 12/31/2024 10:5 1 PM CDT 12/31/2024 10:55 PM CDT Narrative [id number]|2025-01-24 14:15:00|2025-01-24 14:14:00|XMS_ITS|REI FOX|External Medical Summaries|[id number]|" Clinical Summary Created on: January 24, 2025 Alien Mendez : 1980 Sex: Female Author Organization [facility] Address [address] [place] [address] Care Team Providers Care Sat Act Instructor Name Role Phone Rylan Shea MD Unavailable [phone] John Yeh DPM Unavailable [phone] Quentin Dumont NP Primary Care Provider Allergies No known active allergies Medications atorvastatin (LIPITOR) 40 mg tablet Take 1 tablet (40 mg total) by mouth nightly 30 tablet 4 Active escitalopram (LEXAPRO) 5 mg tablet Take 1 tablet (5 mg total) by mouth daily 30 tablet 4 Active hydrOXYzine (ATARAX) 25 mg tablet Take 1 tablet (25 mg total) by mouth every 8 (eight) hours as needed for anxiety 60 tablet 4 Active clopidogreL (PLAVIX) 75 mg tablet Take 1 tablet (75 mg total) by mouth daily 30 tablet 11 4 025 Active acetaminophen 500 mg capsule Take 2 capsules (1,000 mg total) by mouth every 6 (six) hours as needed for pain 24 capsule 4 Active oxyCODONE (ROXICODONE) 5 mg immediate release tabletIndications:P ain Take 1 tablet (5 mg total) by mouth every 8 (eight) hours as needed for pain 15 tablet 4 Active rivaroxaban (XARELTO) 20 mg tabletIndications:a rterial thromboembolism Take 1 tablet (20 mg total) by mouth daily with breakfast 30 tablet 3 4 Active Active Problems Problem Noted Date Diagnosed Date Cellulitis of lower extremity, unspecified later ality 01/01/2025 Class 1 obesity due to excess calories in adult 01/01/2025 Arterial occlusion 06/20/2024 Open wound of left foot 06/20/2024 Assessment & Plan (06/20/2024 6:33 AM CDT): - Patient with left 4th toe wound and left lateral foot ankle ulceration. Recently treated at [facility], [place] for possible cellulitis (vanc and cefepime, discharged on 10 day of doxycyline) following left kissing iliac stents. Follows with outpatient wounds care. Seen by Dr. Yeh at [facility], [place] 06/10. - Continue wound care (wound cleanser, pat dry, apply nickel thickness Santyl ointment and cover with guaze dressing) Anxiety and depression 06/20/2024 Assessment & Plan (06/20/2024 6:33 AM CDT): - discharged on lexapro and atarax last admission, continue. 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 Now presents with cold LLE. 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 Kissing balloon angioplasty bilateral MARTA 9mm balloons and kissing stents. 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 - Offer NRT Pain of hand 04/12/2015 Overview (12/18/2016): Hand pain Encounters Date Type Department Care Team Description 01/12/2025 11:39 AM CDT - 01/12/2025 11:59 PM CDT Hospital Encounter [facility] Emergency, Room R Discharge Disposition: Discharge to home or self care 12/31/2024 10:21 PM CDT - 01/01/2025 11:38 AM CDT Hospital Encounter [facility] [address] [place], [place] [id number] Kaitlin Reynolds MD Petters, MD Jalil Parra Narine, MD Cellulitis of lower extremity, unspecified laterality (Primary Dx); Elevated liver enzymes Discharge Disposition: Left Against Medical Advice from Last 3 Months Surgical History Surgery Date Site/Laterality Comments NO PAST SURGERIES Medical History Medical History Date Comments Hx Other Medical 04-09-15 [address] mildly angulated boxer's fractur; Comments: GARRETT 04/15/2015 - PVD (peripheral vascular disease) Depression Family History Medical History Relation Name Comments Other Other Family history of early heart attack, hypertension and cancer.; Relation Name Status Comments Other Social History Tobacco Use Types Packs/Day Years Used Date Smoking Tobacco: Every Day Cigarettes 0.3 25.4 Started: 1999 Smokeless Tobacco: Never Tobacco Cessation:Ready to Q uit: No; Counseling Given: Yes [facility] Utilities Answer Date Recorded In the past 12 months has e [email or web address], gas, oil, or water [employer] threatened to shut off services in your home? No 01/01/2025 Social Connection and Isolation Panel [NHANES] A nswer Date Recorded In a typical week, how many times do you talk on the phone with family, friends, or neighbors? Once a week 01/01/2025 How often do you get together with friends or re latives? Once a week 01/01/2025 How often do you attend hindu or yazdanism serv ices? Never 01/01/2025 Do you belong to any clubs o r organizations such as hindu groups, unions, fraternal or athletic groups, or school groups? No 01/01/2025 How often do you attend meet ings of the clubs or organizations you belong to? Never 01/01/2025 Are you , , di vorced, , never , or living with a partner? Never 01/01/2025 AUDIT-C Answer Date Recorded Q1: How often do you have a drink containing alcohol? Never 01/01/2025 Q2: How many drinks containi ng alcohol do you have on a typical day when you are drinking? Patient does not drink Q3: How often do you have si x or more drinks on one occasion? Never 01/01/2025 Overall Financial Resource Strain (CARDIA) Answe r Date Recorded How hard is it for you to pa y for the very basics like food, housing, medical care, and heating? Hard 01/01/2025 PHQ-2 Answer Date Recorded PHQ-2 Total Score 2 06/21/2024 Hunger Vital Sign Answer Date Recorded Within the past 12 months, y ou worried that your food would run out before you got the money to buy more. Sometimes true Within the past 12 months, t he food you bought just didn't last and you didn't have money to get more. Sometimes true PRAPARE - Transportation Answer Date Re corded In the past 12 months, has l ack of transportation kept you from medical appointments or from getting medications? Yes 12/13 In the past 12 months, has l ack of transportation kept you from meetings, work, or from getting things needed for daily living? Yes 01/01/2025 Housing Stability Vital Sign Answer Chucky e Recorded In the last 12 months, was t here a time when you were not able to pay the mortgage or rent on time? Yes 01/01/2025 In the past 12 months, how m any times have you moved where you were living? 1 01/01/2025 At any time in the past 12 m [facility], were you homeless or living in a group home (including now)? No 01/01/2025 Personal Safety Answer Date Recorded Have you ever been in or are you currently in a harmful physical or emotional relationship or is someone making you feel afraid or unsafe? 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 Gender Identity Not on file Sexual Orientation Not on file Obstetrics History Para Term AB IAB SAB Ectopic Multiple Livin g Live Births 0 0 0 0 0 0 0 0 0 0 0 Last Filed Vital Signs Vital Sign Reading Time Taken Comments Blood Pressure 131/72 01/01/2025 8:33 AM CDT Pulse 79 01/01/2025 8:33 AM CDT Temperature 36.4 C (97.6 F) 01/01/2025 8:33 AM CDT Respiratory Rate 18 01/01/2025 8:33 AM CDT Oxygen Saturation 97% 01/01/2025 8:33 AM CDT Inhaled Oxygen Concentration - - Weight 96.7 kg (213 lb 3 oz) 01/01/2025 1:34 AM CDT Height 170.2 cm (5' 7 ) 01/01/2025 1:34 AM CDT Body Mass Index 33.39 01/01/2025 1:34 AM CDT Plan of Treatment Health Maintenance Due Date Last Done Comments Cervical Cancer Screening 1980 Colon Cancer Screening-Colonoscopy 1980 DTaP/Tdap/Td Vaccine (1 - Tdap) 1989 Regular Well Visit/Exam 18-64 1996 Pneumococcal vaccine <65 (1 of 2 - PCV) 1997 Influenza Vaccine (Season Ended) 2025 Depression Screening 06/19/2025 06/19/2024 Breast Cancer Screening-Mammogram 12/18/2025 12/18/2024, 12/18/2024 Hepatitis C Screening Completed 01/22/2023 Hepatitis B Screening Completed 12/26/2024 , 11/21/2024, 2009, Additional history exists HPV Vaccines Aged Out No longer eligi ble based on patient's age to complete this topic Medical Devices Implanted Type Area Cracker Off Device Identifier Shelf Expiration Date Model / Serial / Lot [employer] Stent Graft Endoprosthesis Reduced Profile Straight Heparin Coated Viabahn [id number] - [id number] - [id number] Implanted:Qty: 1 on 06/20/2024 by Rylan Shea MD at [facility] Stent Left: Iliac [employer] [id number] 04/03/2027 [id number] / [id number] / [employer] Stent Graft Endoprosthesis Reduced Profile Straight Heparin Coated Viabahn [id number] - [id number] - [id number] Implanted:Qty: 1 on 06/20/2024 by Rylan Shea MD at [facility] Stent Left: Iliac [employer] [id number] 04/03/2027 [id number] / [id number] / Med[employer] Protege Gps Exprt 9mm .079in 60mm 80cm Otw Delivery System Self [id number] - [id number] Implanted:Qty: 1 on 06/20/2024 by Rylan Shea MD at [facility] Stent Left: Iliac [employer] [id number] 11/19/2026 [id number] 9-60-80 / / [id number] [employer] Visi-Pro 8mm 17mm 80cm Radiopaque Balloon Expand Radial Strength - [id number] Implanted:Qty: 1 on 06/20/2024 by Rylan Shea MD at [facility] Stent Right: Iliac [employer] [id number] 10/08/2026 [id number] -[id number] / / [id number] [employer] Device Vascular Closure Femoral Artery Bioabsorbable Dual Method Vascade 6-7fr Collagen [id number] - [id number] Implanted:Qty: 1 on 06/20/2024 by Rylan Shea MD at [facility] Vascular Closure Device Right: Groin [employer] [id number] 10/12/2025 [id number] -05U / / [id number] [facility] Lifestream 9mm 58mm 80cm Balloon Expandable Low Profile Cover [id number] - [id number] Implanted:Qty: 1 on 06/09/2024 by Rylan Shea MD at [facility] [id number] / / [employer] [facility]ipheral [facility] Lifestream 9mm 58mm 80cm Balloon Expandable Low Profile Cover [id number] - [id number] Implanted:Qty: 1 on 06/09/2024 by Rylan Shea MD at [facility] 09/12/2025 [id number] / / [id number] Med[employer] Visi-Pro 8mm 37mm 135cm Radiopaque Balloon Expand Radial Strength - [id number] Implanted:Qty: 1 on 06/09/2024 by Rylan Shea MD at [facility] [employer] 03/03/2026 [id number] -37-135 / / [id number] [facility] Device Vascular Closure Femoral Artery Bioabsorbable Dual Method Vascade 6-7fr Collagen [id number] - [id number] Implanted:Qty: 1 on 06/09/2024 by Rylan Shea MD at [facility] Medical Inc 01/03/2026 [id number] -[id number] / / [id number] [employer] Device Vascular Closure Femoral Artery Bioabsorbable Dual Method Vascade 6-7fr Collagen [id number] - [id number] Implanted:Qty: 1 on 06/09/2024 by Rylan Shea MD at [facility] Medical Inc 12/14/2025 [id number] -05U / / [id number] Procedures Procedure Name Priority Date/Time Associated Diagnosis Comments US VEIN DUPLEX LOWER EXTREMITY BILATERAL COMPLETE ED 01/01/2025 11:02 AM CDT EGFR Routine 01/01/2025 7:05 AM CDT DIFFERENTIAL AUTO Routine 01/01/2025 7:0 5 AM CDT COMPREHENSIVE METABOLIC PANEL Routine 01/01/2025 7:05 AM CDT CBC WITH AUTO DIFFERENTIAL Routine 01/01/2025 7:05 AM CDT SEPSIS LACTATE WITH REFLEX Timed 01/01/2025 7:05 AM CDT BLOOD CULTURE STAT 01/01/2025 12:32 AM CDT EGFR STAT 12/31/2024 10:51 PM CDT DIFFERENTIAL AUTO STAT 12/31/2024 10: 51 PM CDT SEPSIS LACTATE WITH REFLEX STAT 12/31/2024 10:51 PM CDT COMPREHENSIVE METABOLIC PANEL STAT 12/31/2024 10:51 PM CDT CBC WITH AUTO DIFFERENTIAL STAT 12/31/2024 10:51 PM CDT BLOOD CULTURE STAT 12/31/2024 10:51 PM CDT from Last 3 Months Results * US Vein Duplex Lower Extremity Bilateral Complete (01/01/2025 11:02 AM CDT) Anatomical Region Laterality Modality Vascular Bilateral Ultrasound 01/01/2025 11:1 8 AM CDT Narrative 01/01/2025 11:20 AM CDT EXAM DESCRIPTION: US VEIN DUPLEX LOWER EXTREMITY BILATERAL COMPLETE REASON FOR STUDY: Localized Edema Bilateral leg swelling and ankle redness for 3-4 days. TECHNIQUE: Grayscale, color and spectral Doppler imaging of the deep venous system of the bilateral lower extremities was performed. Images stored on PACS. COMPARISON: None FINDINGS: The bilateral common femoral, superficial femoral, and popliteal veins are readily compressible with no intraluminal thrombus on mobley scale images. There is normal color and spectral Doppler signal, including augmentation. The bilateral greater saphenous veins appear patent. Visualized calf veins are patent. There is mild bilateral lower extremity subcutaneous soft tissue edema. IMPRESSION: No definite evidence of a deep venous thrombosis in the bilateral lower extremity venous systems. Mild bilateral lower extremity subcutaneous soft tissue edema. THIS IS AN ELECTRONICALLY VERIFIED FINAL REPORT 01/01/2025 11:20 AM - Electronically signed by Jaycee Romero D.O. PS: PS Report ID: [id number] Reading Location: [id number] Procedure Note Jaycee Romero, DO - 01/01/2025 EXAM DESCRIPTION: US VEIN DUPLEX LOWER EXTREMITY BILATERAL COMPLETE REASON FOR STUDY: Localized Edema Bilateral leg swelling and ankle redness for 3-4 days. TECHNIQUE: Grayscale, color and spectral Doppler imaging of the deepvenous system of the bilateral lower extremities was performed. Images stored [employer]. COMPARISON: None FINDINGS: The bilateral common femoral, superficial femoral, and popliteal veins are readily compressible with no intraluminal thrombus on mobley scale images. There is normal color and spectral Doppler signal, including augmentation. The bilateral greater saphenous veins appear patent. Visualized calfveins are patent. There is mild bilateral lower extremity subcutaneous softtissue edema. IMPRESSION: No definite evidence of a deep venous thrombosis in the bilateral lower extremity venous systems. Mild bilateral lower extremity subcutaneous soft tissue edema. THIS IS AN ELECTRONICALLY VERIFIED FINAL REPORT 01/01/2025 11:20 AM - Electronically signed by Jaycee Romero D.O. PS: PS Report ID: [id number] Reading Location: [id number] us Kaitlin Reynolds MD IMG US PROCEDURES Final Result * Sepsis Lactate w/ Reflex (01/01/2025 7:05 AM CDT) Sepsis Lactate 1.5 0.7 - 2.0 mmol/L Blood 01/01/2025 7:05 AM CDT 01/01/2025 7:16 AM CDT us Kaitlin Reynolds MD LAB BLOOD ORDERABLES Final Resul t [place] 1 [facility] [place] [place] [address] * eGFR (01/01/2025 7:05 AM CDT) eGFR >90 >=60 mL/min/1. 73 m2 Comment: Interpretive Data Reference Interval Normal >/= 90 mL/min/1.73m2 Mildly decreased* 60 - 89 mL/min/1.73m2 Mildly to moderately decreased 45 - 59 mL/min/1.73m2 Moderately to severely decreased 30 - 44 mL/min/1.73m2 Severely decreased 15 - 29 mL/min/1.73m2 Kidney Failure < 15 mL/min/1.73m2 *Relative to young adult level Estimated glomerular filtration rate is determined by the 2020 CKD-EPI equation recommended by the National Kidney Foundation (A Unifying Approach to GFR Estimation: Recommendations of the NKF-ASK Task Force on Reassessing the Inclusion of Race in Diagnosing Kidney Disease, JASN 2020). The CKD-EPI equation should not be used for patients with unstable renal function and has not been validated in children and those over 70. Current interpretive data was last reviewed 2021. Blood 01/01/2025 7:05 AM CDT 01/01/2025 7:16 AM CDT us Kaitlin Reynolds MD LAB BLOOD ORDERABLES Final Resul t [facility] ([place]) [address] [facility] [place] [employer] [address] * Differential, auto (01/01/2025 7:05 AM CDT) Neutrophil abs 4.47 1.50 - 6.50 K/cumm Imm gran abs 0.07 0.00 - 0.10 K/cumm [facility] ([place]) Lymphocyte abs 2.05 0.80 - 3.30 K/cumm [facility] ([place]) Monocyte abs 0.75 0.20 - 0.80 K/cumm [facility] ([place]) Eosinophil abs 0.17 0.00 - 0.50 K/cumm [facility] ([place]) Basophil abs 0.05 0.00 - 0.10 K/cumm [facility] ([place]) Neutrophil pct 59.2 % [facility] ([place]) Comment: Interpretive Data Percent cell count reference ranges are not reported, since discordance with absolute values may lead to misinterpretation of CBC data. Current Interpretive Data was last revised on 2017. Imm gran pct 0.9 % [facility] ([place]) Comment: Interpretive Data Percent cell count reference ranges are not reported, since discordance with absolute values may lead to misinterpretation of CBC data. Current Interpretive Data was last revised on 2017. Lymphocyte pct 27.1 % [facility] ([place]) Comment: Interpretive Data Percent cell count reference ranges are not reported, since discordance with absolute values may lead to misinterpretation of CBC data. Current Interpretive Data was last revised on 2017. Monocyte pct 9.9 % [facility] ([place]) Comment: Interpretive Data Percent cell count reference ranges are not reported, since discordance with absolute values may lead to misinterpretation of CBC data. Current Interpretive Data was last revised on 2017. Eosinophil pct 2.2 % [facility] ([place]) Comment: Interpretive Data Percent cell count reference ranges are not reported, since discordance with absolute values may lead to misinterpretation of CBC data. Current Interpretive Data was last revised on 2017. Basophil pct 0.7 % [facility] ([place]) Comment: Interpretive Data Percent cell count reference ranges are not reported, since discordance with absolute values may lead to misinterpretation of CBC data. Current Interpretive Data was last revised on 2017. Blood 01/01/2025 7:05 AM CDT 01/01/2025 7:16 AM CDT us Kaitlin Reynolds MD LAB BLOOD ORDERABLES Final Resul t [facility] [place] ([place]) 1 [facility] [place] [address] * (ABNORMAL) CBC with auto differential (01/01/2025 7:05 AM CDT) WBC 7.56 3.80 - 9.90 K/cumm Hgb 14.3 11.9 - 15.5 g/dL [facility] ([place]) Hct 42.4 35.6 - 45.5 % [facility] ([place]) Plt 119(L) 150 - 400 K/cumm [facility] ([place]) MPV 10.4 9.1 - 12.3 fL [facility] ([place]) RBC 4.62 3.90 - 5.20 M/cumm [facility] ([place]) MCV 91.8 81.3 - 96.4 fL [facility] ([place]) MCH 31.0 27.1 - 33.3 pg [facility] ([place]) MCHC 33.7 32.3 - 35.7 g/dL [facility] RDW CV 13.2 11.1 - 14.9 % [facility] ([place]) RDW SD 44.6 35.7 - 48.1 fL [facility] NRBC abs 0.00 0.00 - 0.01 K/cumm [facility] Blood 01/01/2025 7:05 AM CDT 01/01/2025 7:16 AM CDT us Kaitlin Reynolds MD LAB BLOOD ORDERABLES Final Resul t [facility] ([place] 1 [facility] Department [place] [address] * (ABNORMAL) Comprehensive metabolic panel (01/01/2025 7:05 AM CDT) Pathologist [facility] [place] Sodium 136 135 - 145 mmol/L Potassium, pl 3.9 3.3 - 4.9 mmol/L [facility] ([place]) Comment:Moderately Hemolyzed Specimen. Results may be affected. Chloride 104 97 - 110 mmol/L [facility] ([place]) CO2 21(L) 22 - 32 mmol/L [facility] ([place]) Anion gap 11 2 - 15 mmol/L [facility] ([place]) BUN 8 6 - 25 mg/dL [facility] ([place]) Creatinine 0.54(L) 0.60 - 1.10 mg/dL [facility] ([place]) Glucose 131 70 - 199 mg/dL [facility] ([place]) Comment: Interpretive Data Fasting glucose >/= 126 mg/dl is diagnostic for diabetes. Fasting is defined as no caloric intake for at least 8 hours. Fasting glucose between 100 mg/dl to 125 mg/dl is diagnostic of prediabetes. In a patient with classic symptoms of hyperglycemia or hyperglycemic crisis, a random glucose >/= 200 mg/dl is diagnostic for diabetes. In the absence of unequivocal hyperglycemia, results should be confirmed by repeat testing. The classification and Diagnosis of Diabetes Diabetes Care 2021; 46: S19-S40. Current interpretive data was last revised 2022. Calcium 8.2(L) 8.5 - 10.3 mg/dL [facility] ([place]) Bilirubin, total 0.4 0.1 - 1.2 mg/dL [facility] ([place]) Protein, pl 6.3(L) 6.5 - 8.5 g/dL [facility] Albumin 3.1(L) 3.5 - 5.0 g/dL [facility] Alk phos 109 40 - 130 Units/L [facility] ALT 168(H) 7 - 45 Units/L [facility] ([place]) Comment: Hemolysis present. Results may be affected. Moderately Hemolyzed Specimen AST 101(H) 10 - 45 Units/L [facility] Comment: Hemolysis present. Results may be affected. Moderately Hemolyzed Specimen Blood 01/01/2025 7:05 AM CDT 01/01/2025 7:16 AM CDT us Kaitlin Reynolds MD LAB BLOOD ORDERABLES Final Resul t [facility] [place] ([place]) 1 [facility] Department [place] [address] * Blood culture Blood Peripheral (01/01/2025 12:32 AM CDT) Report Final Report: No growth Comment:Testing performed by : [facility], [address] [facility], [place]., [address] Blood (Peripheral) 01/01/2025 12:32 AM CDT 01/01/2025 7:33 AM CDT Narrative [facility] ([place]) - 01/05/2025 12:00 PM CDT From a different site than #1. Draw Blood cultures before administration of Antibiotics Collection->Peripheral 1. Blood cultures are incubated for 4 days on a continuously monitored blood culture system. The first report of a negative culture is issued within 24 hours of receipt of the specimen in the laboratory. 2. Positive culture results are reported as soon as they are detected. 3. The most important factor for detection of microbes in the setting of bloodstream infection is the volume of blood submitted for culture. Failure to collect an optimal blood volume can result in false negative blood cultures. 4. For pediatric patients, the recommended blood volume to collect follows a weight based strategy. See the electronic test catalog for collection instructions. 5. For positive blood cultures, a rapid molecular test may be performed for organism identification using the [employer]ena e[employer]lex blood culture identification panel for gram positive (BCID-GP) and gram negative (BCID-GN) organisms. This nucleic acid amplification test detects microbial DNA in positive blood culture broth. This assay has been cleared by the [place] Food and Drug Administration and its performance characteristics have been verified by the [facility]. For questions about this culture, contact the Microbiology Laboratory at [phone]. Interpretive data was last revised on 24. us Kaitlin Reynolds MD LAB MICROBIOLOGY - GENERAL ORDER ANIYA Final Result [facility] ([place]) 1 [facility] Department of Laboratories [place], [place] [id number] * (ABNORMAL) Sepsis Lactate w/ Reflex (12/31/2024 10:51 PM CDT) Sepsis Lactate 2.6(H) 0.7 - 2.0 mmol/L Blood 12/31/2024 10:5 1 PM CDT 12/31/2024 10:55 PM CDT Kaitlin Reynolds MD LAB BLOOD ORDERABLES Final Resul t [place] ([place]) 1 [facility] [employer] [place] [address] * eGFR (12/31/2024 10:51 PM CDT) eGFR >90 >=60 mL/min/1. 73 m2 Comment: Interpretive Data Reference Interval Normal >/= 90 mL/min/1.73m2 Mildly decreased* 60 - 89 mL/min/1.73m2 Mildly to moderately decreased 45 - 59 mL/min/1.73m2 Moderately to severely decreased 30 - 44 mL/min/1.73m2 Severely decreased 15 - 29 mL/min/1.73m2 Kidney Failure < 15 mL/min/1.73m2 *Relative to young adult level Estimated glomerular filtration rate is determined by the 2020 CKD-EPI equation recommended by the National Kid[employer] (A Unifying Approach to GFR Estimation: Recommendations of the NKF-ASK Task Force on Reassessing the Inclusion of Race in Diagnosing Kidney Disease, JASN 2020). The CKD-EPI equation should not be used for patients with unstable renal function and has not been validated in children and those over 70. Current interpretive data was last reviewed 2021. Blood 12/31/2024 10:5 1 PM CDT 12/31/2024 10:57 PM CDT Kaitlin Reynolds MD LAB BLOOD ORDERABLES Final Resul t [place] ([place]) 1 [facility] [place] [place] [address] * (ABNORMAL) Differential, auto (12/31/2024 10:51 PM CDT) Neutrophil abs 6.91(H) 1.50 - 6.50 K/cumm Imm gran abs 0.05 0.00 - 0.10 K/cumm [facility] ([place]) Lymphocyte abs 2.29 0.80 - 3.30 K/cumm [facility] ([place]) Monocyte abs 0.96(H) 0.20 - 0.80 K/cumm [facility] ([place]) Eosinophil abs 0.11 0.00 - 0.50 K/cumm [facility] ([place]) Basophil abs 0.06 0.00 - 0.10 K/cumm [facility] ([place]) Neutrophil pct 66.5 % [facility] ([place]) Comment: Interpretive Data Percent cell count reference ranges are not reported, since discordance with absolute values may lead to misinterpretation of CBC data. Current Interpretive Data was last revised on 2017. Imm gran pct 0.5 % [facility] ([place]) Comment: Interpretive Data Percent cell count reference ranges are not reported, since discordance with absolute values may lead to misinterpretation of CBC data. Current Interpretive Data was last revised on 2017. Lymphocyte pct 22.1 % [facility] ([place]) Comment: Interpretive Data Percent cell count reference ranges are not reported, since discordance with absolute values may lead to misinterpretation of CBC data. Current Interpretive Data was last revised on 2017. Monocyte pct 9.2 % [facility] ([place]) Comment: Interpretive Data Percent cell count reference ranges are not reported, since discordance with absolute values may lead to misinterpretation of CBC data. Current Interpretive Data was last revised on 2017. Eosinophil pct 1.1 % [facility] ([place]) Comment: Interpretive Data Percent cell count reference ranges are not reported, since discordance with absolute values may lead to misinterpretation of CBC data. Current Interpretive Data was last revised on 2017. Basophil pct 0.6 % [facility] ([place]) Comment: Interpretive Data Percent cell count reference ranges are not reported, since discordance with absolute values may lead to misinterpretation of CBC data. Current Interpretive Data was last revised on 2017. Blood 12/31/2024 10:5 1 PM CDT 12/31/2024 10:55 PM CDT us Kaitlin Reynolds MD LAB BLOOD ORDERABLES Final Resul t [facility] [place] ([place]) 1 [facility] [place] [address] * (ABNORMAL) CBC with auto differential (12/31/2024 10:51 PM CDT) WBC 10.38(H) 3.80 - 9.90 K/cumm
--- OUTSIDE RECORDS SUMMARY | 2025-01-24 14:15 | XMS_ITS | Clinical Summary ---
Author Organization [facility] Address [address] [place] [address] Phone Care Team Providers Care Apron Worker Name Role Phone Quentin Dumont APRN, SENIOR GEOTECHNICAL ENGINEER Primary Care Pr ovider Vasile Lopez MD Unavailable Margot Fairbanks APRN, KATHERINE Unavailable Allergies No known active allergies Medications rivaroxaban (XARELTO) 20 MG TabletIndications: Venous Thromboembolism Take 1 Tablet by mouth daily (with dinner). Take with food. Indications: Venous Thromboembolism 30 Tablet 2 06/30/20 Active Additional Information Patient not taking.Reported on 12/26/2024 atorvastatin (LIPITOR) 40 MG Tablet Take 1 Tablet by mouth daily. 90 Tablet 3 07/24/20 24 Active Additional Information Patient not taking.Reported on 12/26/2024 Escitalopram Oxalate 5 MG TabletIndications: Anxiety Take 1 Tablet by mouth daily. 90 Tablet 3 07/25/20 24 Active Additional Information Patient not taking.Reported on 12/26/2024 clopidogrel (PLAVIX) 75 MG Tablet Take 1 Tablet by mouth daily. 30 Tablet 07/25/20 24 Active Additional Information Patient not taking.Reported on 12/26/2024 hydrOXYzine (ATARAX) 25 MG TabletIndications: Anxiety Take 1 Tablet by mouth every 6 hours as needed for Anxiety. 60 Tablet 2 11/07/19 Active Additional Information Patient not taking.Reported on 12/26/2024 Glecaprevir-Pibren tasvir (Mavyret) 100-40 MG TabletIndications: Chronic hepatitis C without hepatic coma (HCC) Take 3 Tablets by mouth daily (with lunch). 84 Tablet 1 12/26/19 Active Additional Information Patient not taking.Reported on 12/26/2024 Active Problems Problem Noted Date Diagnosed Date PVD (peripheral vascular disease) Hepatitis C Depression Anxiety Encounters Date Type Department Care Team Description 01/24/2025 [facility] [address] [place] [address] Quentin Dumont APRN, KATHERINE Pelvic Pain; Vaginal Swelling 01/12/2025 11:55 AM CDT - 01/12/2025 4:08 PM CDT [facility] [address] [place] [phone] Morgan Jimenez MD Extremity edema Discharge Disposition: Discharged to home or Selfcare 01/12/2025 Travel 01/03/2025 [facility] [place] [address] [place] [phone] Margot Fairbanks APRN, KATHERINE 12/27/2024 [facility] [place] [address] [place] [phone] Margot Fairbanks APRN, SENIOR GEOTECHNICAL ENGINEER Medication Management 12/26/2024 10:30 AM CDT [facility] [place] [address] [phone] Vasile Lopez MD Anal skin tag (Primary Dx) Discharge Disposition: Discharged to home or Selfcare 12/26/2024 10:00 AM CDT [facility] [place] [address] [place] [phone] Tanner Witt Gastro Encounter for immunization (Primary Dx) Discharge Disposition: Discharged to home or Selfcare 12/26/2024 [facility] [place] [address] [place] [phone] Margot Fairbanks APRN, KATHERINE Appointment; Immunization/Injec tion 12/25/2024 Travel 12/25/2024 [facility]phone [facility] [place] [address] [place] [address] Margot Fairbanks APRN, CNP Appointment 12/19/2024 Results Follow-Up [facility] [place] [address] [place] [phone] Quentin Dumont APRN, KATHERINE [facility] DIAG BILATERAL DIGITAL W CAD W TIERRA 12/18/2024 3:00 PM CDT - 12/18/2024 11:59 PM CDT [facility] [address] [place] [phone] Quentin Dumont APRN, KATHERINE Discharge Disposition: Discharged to home or Selfcare 12/18/2024 2:00 PM CDT - 12/18/2024 2:59 PM CDT [facility] M[facility] [address] [place] [phone] Quentin Dumont APRN, KATHERINE Discharge Disposition: Discharged to home or Selfcare 12/18/2024 Travel 12/04/2024 Results Follow-Up [facility] Gastroenterology - [place] [address] [place] [address] Margot Fairbanks APRN, CNP US ABDOMEN COMPLETE 11/29/2024 12:15 PM CDT [facility] [place] [phone] Quentin Dumont APRN, KATHERINE E-Visit for Female Urinary Problems 11/29/2024 10:29 AM CDT - 11/29/2024 11:59 PM CDT [facility] [address] [place] [phone] Margot Fairbanks APRN, KATHERINE Discharge Disposition: Discharged to home or Selfcare 11/29/2024 Travel 11/29/2024 Transcribe Orders [facility] M[facility] [address] [place] [phone] Quentin Dumont APRN, KATHERINE Abnormal mammogram (Primary Dx) 11/24/2024 Results Follow-Up [facility] Gastroenterology - [place] [address] [place] [phone] Margot Fairbanks APRN, KATHERINE HCV GENOTYPE SERUM, [place] HCVG 11/21/2024 1:30 PM CDT Immunization [facility]enterology - [place] [address] [place] [phone] [facility] Gastro Encounter for immunization (Primary Dx) Discharge Disposition: Discharged to home or Selfcare 11/20/2024 Travel 11/19/2024 Travel 11/10/2024 Results Follow-Up [facility] Gastroenterology - [place] [address] [place] [phone] Magrot Fairbanks APRN, CNP FIBROTEST ACTITEST, SERUM, FELIX FIBRO, HCV GENOTYPE SERUM, [place] HCVG, HEPATITIS A ANTIBODY IGG, Additional followed-up results: 3 11/09/20[address] [facility] [place] [facility] [address] [place] [address] Quentin Dumont APRN, KATHERINE Advice Only; Cough 11/07/2024 3:00 PM EMPLOYMENT MANAGER Office Visit [facility]astroenterology - [place] [address] [place] [phone] Margot Fairbanks APRN, SENIOR GEOTECHNICAL ENGINEER Chronic hepatitis C without hepatic coma (HCC) (Primary Dx); Elevated LFTs; PVD (peripheral vascular disease) (HCC) Discharge Disposition: Discharged to home or Selfcare 11/07/2024 [facility] [address] [place] [phone] Margot Fairbanks APRN, CNP Appointment 11/07/2024 [facility]Chart [facility] [address] [place] [phone] Quentin Dumont APRN, CNP Medication Renewal Reviewed 11/07/2024 Travel 11/06/2024 Patient Outreach [facility] HealthCare Stitcher Around Management [address] [place] [address] Halina Polanco Care Management (Weekly monitoring call-(Week 4)) from Last 3 Months Immunizations Immunization Administration Dates Next Due Hepatitis A And Hepatitis B Vaccine 2009,0 02/19/2009 Hepatitis B Vaccine 12/26/2024,11/21/2024 Family History Medical History Relation Name Comments High Cholesterol Brother Prostate Cancer Brother Chronic Obstructive Pulmonary Disease Father Congestive Heart Failure Father Other-comment Mother PVD Heart Attack Paternal Grandfather Cancer Paternal Grandmother Relation Name Status Comments Brother Alive Father Alive Maternal Grandfather Maternal Grandmother Mother Paternal Grandfather Paternal Grandmother Social History Tobacco Use Types Packs/Day Years Used Date Smoking Tobacco: Every Day Cigarettes 0.3 32.4 Started: 1992 Smokeless Tobacco: Never Tobacco Cessation:Ready to Q uit: No; Counseling Given: No Alcohol Use Standard Drinks/Week Comments No 0 (1 standard drink = 0.6 oz pur e alcohol) [facility] Utilities Answer Date Recorded In the past 12 months has [employer], gas, oil, or water [employer] threatened to shut off services in your home? No 10/12/2024 Social Connection and Isolat ion Panel [NHANES] Answer Date Recorded In a typical week, how many times do you talk on the phone with family, friends, or neighbors? More than three times a week 10/12/2024 How often do you get togethe r with friends or relatives? Three times a week 10/12/2024 How often do you attend chur ch or gnosticist services? Never 10/12/2024 Do you belong to any clubs o r organizations such as mandaen groups, unions, fraternal or athletic groups, or school groups? No 10/12/2024 How often do you attend meet ings of the clubs or organizations you belong to? Never 10/12/2024 Are you , , di vorced, , never , or living with a partner? Never 10/12/2024 AUDIT-C Answer Date Recorded Q1: How often do you have a drink containing alcohol? Never 10/12/2024 Q2: How many drinks containi ng alcohol do you have on a typical day when you are drinking? Patient does not drink Q3: How often do you have si x or more drinks on one occasion? Never 10/12/2024 Overall Financial Resource Strain (CARDIA) Answe r Date Recorded How hard is it for you to pa y for the very basics like food, housing, medical care, and heating? Very hard 10/12/2024 PHQ-2 Answer Date Recorded Total Score - Questions 1-9 3 09/15 [facility] of Occupat ional Health - Occupational Stress Questionnaire Answer Date Recorded Do you feel stress - tense, restless, nervous, or anxious, or unable to sleep at night because your mind is troubled all the time - these days? To some extent 10/12/2024 Exercise Vital Sign Answer Date Recorde d On average, how many days pe r week do you engage in moderate to strenuous exercise (like a brisk walk)? 0 days 10/12/2024 On average, how many minutes do you engage in exercise at this level? 0 min 10/12/2024 Hunger Vital Sign Answer Date Recorded Within [...] from medical appointments or from getting medications? No 09/15 In the past 12 months, has l ack of transportation kept you from meetings, work, or from getting things needed for daily living? Yes 10/12/2024 Housing Stability Vital Sign Answer Chucky e Recorded In the last 12 months, was t here a time when you were not able to pay the mortgage or rent on time? Patient declined 10/12/19 25 In the past 12 months, how m any times have you moved where you were living? 6 10/12/2024 At any time in the past 12 m [facility], were you homeless or living in a chcf (including now)? Yes 10/12/2024 Comments No Sex and Gender Information Value Date Recorded Sex Assigned at Not on file Legal Sex Female 10:05 PM CDT Gender Identity Not on file Sexual Orientation Not on file Last Filed Vital Signs Vital Sign Reading Time Taken Comments Blood Pressure 136/84 01/12/2025 3:30 PM CDT Pulse 79 01/12/2025 3:31 PM CDT Temperature 36.9 C (98.5 F) 01/12/2025 12:03 PM CDT Respiratory Rate 21 01/12/2025 3:31 PM CDT Oxygen Saturation 100% 01/12/2025 3:31 PM CDT Inhaled Oxygen Concentration - - Weight 89.8 kg (198 lb) 01/12/2025 12:03 PM CDT Height 170.2 cm (5' 7 ) 01/12/2025 12:03 PM CDT Body Mass Index 31.01 01/12/2025 12:03 PM CDT Plan of Treatment Upcoming Encounters Date Type Department Care Team (Latest Contact Info) Description 02/07/2025 1:00 PM CDT [facility] [place] [address] [place] [address] Quentin Dumont APRN, SENIOR GEOTECHNICAL ENGINEER [id number] [address] 03/20/2025 1:00 PM CDT [facility]ment [facility] 1 [facility] [place] [address] Quentin Dumont, DIRECTOR INTEGRATED, SENIOR GEOTECHNICAL ENGINEER [address] [place] [address] Discharge Disposition: Discharged to home or Selfcare 06/19/2025 1:30 PM CDT Immunization [facility] [place] [address] [place] [address] Nurse, [place] [facility] Maintenance Due Date Last Done Comments TdaP Immunization 1978 Pap Smear 1999 Cervical Cancer Screening (CCS) 2008 HPV/Cotest 2008 Colonoscopy 2023 Colorectal Cancer Screening 2023 SARS-COV-2 Immunization ( season) 2024 Mammogram 12/18/2025 12/18/2024 Respiratory Syncytial Virus (RSV) Immunization (Adult) (1 - 1-dose 75+ series) 2053 Hepatitis C Virus (HCV) Screening Discontinued 11/21/2024, 10/05/2024 Discussion re Starting/Frequency of Mammograms Completed 12/18/2024 Hepatitis B Immunization Completed 025, 11/21/2024, 2009, Additional history exists Human Papillomavirus (HPV) Immunization Aged Out No longer eligible based on patient's age to complete this topic Influenza Immunization Discontinued Meningococcal Immunization (ACWY) Aged Out No longer eligible based on patient's age to complete this topic Pneumococcal Immunization Combined Discontinued Rotavirus Immunization Aged Out No lo nger eligible based on patient's age to complete this topic Procedures Procedure Name Priority Date/Time Associated Diagnosis Comments US RIGHT DUPLEX UPPER EXTREMITY VEINS Stat with Interpretation 01/12/2025 2:45 PM CDT US BILATERAL DUPLEX LOWER EXTREMITY VEINS Stat with Interpretation 01/12/2025 2:45 PM CDT CBC WITH AUTO DIFFERENTIAL STAT 01/12/2025 12:20 PM CDT TROPONIN I, HIGH SENSITIVITY (HSTRP) STAT 01/12/2025 12:20 PM CDT D-DIMER STAT 01/12/2025 12:20 PM CDT CMP (COMPREHENSIVE METABOLIC PANEL) STAT 01/12/2025 12:20 PM CDT COMPLETE BLOOD COUNT (CBC) WITH DIFF STAT 01/12/2025 12:20 PM CDT EKG 12 LEAD STAT 01/12/2025 11:54 AM CDT EKG SCAN 01/12/2025 12:00 AM CDT [facility] US BREAST LIMITED ROSALIND Routine 12/18/2024 4:06 PM CDT Abnormal mammogram [facility] DIAG BILATERAL DIGITAL W CAD W TIERRA Routine 12/18/2024 3:22 PM CDT Abnormal mammogram US ABDOMEN COMPLETE Routine 11/29/2024 11:16 AM CDT Chronic hepatitis C without hepatic coma (HCC) HCV GENOTYPE SERUM, [place] HCVG Routine 11/21/2024 2:31 PM CDT Chronic hepatitis C without hepatic coma (HCC) HEPATITIS B SURFACE ANTIBODY (HBSAB) Routine 11/07/2024 3:57 PM EMPLOYMENT MANAGER Chronic hepatitis C without hepatic coma (HCC) HEPATITIS B SURFACE ANTIGEN (HBSAG) Routine 11/07/2024 3:57 PM EMPLOYMENT MANAGER Chronic hepatitis C without hepatic coma (HCC) HEPATITIS A ANTIBODY IGG Routine 11/07/2024 3:57 PM EMPLOYMENT MANAGER Chronic hepatitis C without hepatic coma (HCC) HCV GENOTYPE SERUM, [place] HCVG Routine 11/07/2024 3:57 PM EMPLOYMENT MANAGER Chronic hepatitis C without hepatic coma (HCC) FIBROTEST ACTITEST, SERUM, [place] FIBRO Routine 11/07/2024 3:57 PM EMPLOYMENT MANAGER Chronic hepatitis C without hepatic coma (HCC) HEPATIC FUNCTION PANEL Routine 11/07/2024 3:57 PM EMPLOYMENT MANAGER Chronic hepatitis C without hepatic coma (HCC) from Last 3 Months Results * US RIGHT DUPLEX UPPER EXTREMITY VEINS (01/12/2025 2:45 PM CDT) Anatomical Region Laterality Modality vascular Right Ultrasound 01/12/2025 2:58 PM CDT Impressions 01/12/2025 3:01 PM CDT IMPRESSION: 1. No sonographic evidence of deep venous thrombosis within the right upper extremity. 2. Indeterminate subcentimeter hyperechoic mass within the superficial soft tissues of the right upper arm. This is of uncertain significance. Primary differential considerations are lipoma or potentially blood products if there is a history of trauma. Recommend correlation with physical examination. Short-term interval follow-up ultrasound may be performed to document stability. Narrative 01/12/2025 3:01 PM CDT EXAM DESCRIPTION: US RIGHT DUPLEX UPPER EXTREMITY VEINS HISTORY: swelling TECHNIQUE: Duplex scan was performed using B-mode, spectral Doppler and color-flow Doppler imaging of the right upper extremity was performed utilizing real-time ultrasonography. COMPARISON: None FINDINGS: The deep venous system from the jugular vein through the antecubital fossa demonstrates normal color Doppler flow and wave forms, normal compressibility where applicable, and normal augmentation. No abnormal fluid collections or masses are identified within the soft tissues. There is an indeterminate rounded hyperechoic mass within the subcutaneous fat of the right upper arm measuring 0.7 x 0.6 x 0.5 cm with no internal blood flow on color Doppler. THIS IS AN ELECTRONICALLY VERIFIED FINAL REPORT 01/12/2025 2:58 PM - Electronically signed by Abhay Proctor M.D. AG: CHANELLE Report ID: [id number] Reading Location: [id number] Procedure Note Ahbay Proctor MD - 01/12/2025 EXAM DESCRIPTION: US RIGHT DUPLEX UPPER EXTREMITY VEINS HISTORY: swelling TECHNIQUE: Duplex scan was performed using B-mode, spectral Doppler and color-flow Doppler imaging of the right upper extremity was performed utilizing real-time ultrasonography. COMPARISON: None FINDINGS: The deep venous system from the jugular vein through the antecubital fossa demonstrates normal color Doppler flow and wave forms, normal compressibility where applicable, and normal augmentation. No abnormal fluid collections or masses are identified within the soft tissues. There is an indeterminate rounded hyperechoic mass within the subcutaneous fat of the right upper arm measuring 0.7 x 0.6 x 0.5 cm with no internal blood flow on color Doppler. THIS IS AN ELECTRONICALLY VERIFIED FINAL REPORT 01/12/2025 2:58 PM - Electronically signed by Abhay Proctor M.D. AG: CHANELLE Report ID: [id number] Reading Location: [id number] IMPRESSION: 1. No sonographic evidence of deep venous thrombosis within the right upper extremity. 2. Indeterminate subcentimeter hyperechoic mass within the superficial soft tissues of the right upper arm. This is of uncertain significance. Primary differential considerations are lipoma or potentially blood products if there is a history of trauma. Recommend correlation with physical examination. Short-term interval follow-up ultrasound may be performed to document stability. us Morgan Jimenez MD IMG US ORDERABLES Final Result * US BILATERAL DUPLEX LOWER EXTREMITY VEINS (01/12/2025 2:45 PM CDT) Anatomical Region Laterality Modality vascular Bilateral Ultrasound 01/12/2025 2:59 PM CDT Impressions 01/12/2025 3:02 PM CDT IMPRESSION: No lower extremity deep venous thrombosis is seen. Narrative 01/12/2025 3:02 PM CDT EXAM DESCRIPTION: US BILATERAL DUPLEX LOWER EXTREMITY VEINS REASON FOR STUDY: positive DDIMER, r/o DVT TECHNIQUE: Grayscale, color and spectral Doppler imaging of the deep venous system of the bilateral lower extremities was performed. Images stored on PACS. COMPARISON: 01/01/2025 FINDINGS: Limited by lower extremity edema. The common femoral, common femoral-saphenous vein confluence, visualized profunda femoral, superficial femoral, and popliteal veins are readily compressible bilaterally with no intraluminal thrombus on mobley scale images. There is normal color and spectral Doppler signal, including augmentation. Greater saphenous vein appears patent. Visualized calf veins are patent. THIS IS AN ELECTRONICALLY VERIFIED FINAL REPORT 01/12/2025 2:59 PM - Electronically signed by Abhay Proctor M.D. AG: CHANELLE Report ID: [id number] Reading Location: [id number] Procedure Note Abhay Proctor MD - 01/12/2025 EXAM DESCRIPTION: US BILATERAL DUPLEX LOWER EXTREMITY VEINS REASON FOR STUDY: positive DDIMER, r/o DVT TECHNIQUE: Grayscale, color and spectral Doppler imaging of the deep venous system of the bilateral lower extremities was performed. Images stored on PACS. COMPARISON: 01/01/2025 FINDINGS: Limited by lower extremity edema. The common femoral, common femoral-saphenous vein confluence, visualized profunda femoral, superficial femoral, and popliteal veins are readily compressible bilaterally with no intraluminal thrombus on mobley scale images. There is normal color and spectral Doppler signal, including augmentation. Greater saphenous vein appears patent. Visualized calf veins are patent. THIS IS AN ELECTRONICALLY VERIFIED FINAL REPORT 01/12/2025 2:59 PM - Electronically signed by Abhay Proctor M.D. AG: CHANELLE Report ID: [id number] Reading Location: [id number] IMPRESSION: No lower extremity deep venous thrombosis is seen. Morgan Jimenez MD [facility] US ORDERABLES Final Result * TROPONIN I, HIGH SENSITIVITY (HSTRP) (01/12/2025 12:20 PM CDT) TROPONIN I, HIGH SENSITIVITY- [place] <3 <=14 ng/L 01/12/2025 12:53 PM CDT [facility] Comment: High-sensitivity troponin I results are reported in ng/L making the result appear to be 1,000 times higher than the contemporary troponin I value which is reported in ng/ml. Results from [place]. Blood Venipuncture / Unknown 01/12/2025 12:20 PM CDT 01/12/2025 12:27 PM CDT Oumar Patricio PAC CHEMISTRY ORDERABLES Final Result [facility] [address] [place] [address] * (ABNORMAL) CBC with Auto Differential (01/12/2025 12:20 PM CDT) WBC 8.49 4.00 - 12.00 10(3)/mcL 01/12/2025 12:29 PM CDT [facility] RBC 5.13 3.80 - 5.30 10(6)/mcL 01/12/2025 12:29 PM CDT [facility] HEMOGLOBIN (HGB) 16.0(H) 12.0 - 15.8 g/dL 01/12/2025 12:29 PM CDT [facility] HEMATOCRIT (HCT) 46.5 36.0 - 47.0 % 01/12/2025 12:29 PM CDT [facility] MCV 90.6 82.0 - 96.0 fL 01/12/2025 12:29 PM CDT [facility] MCH 31.2 26.0 - 34.0 pg 01/12/2025 12:29 PM CDT [facility] MCHC 34.4 31.0 - 36.0 g/dL 01/12/2025 12:29 PM CDT [facility] PLATELET COUNT 172 140 - 440 10(3)/mcL 01/12/2025 12:29 PM CDT [facility] RDW 12.8 11.8 - 15.5 % 01/12/2025 12:29 PM CDT [facility] MPV 10.1 9.7 - 12.4 fL 01/12/2025 12:29 PM CDT [facility] NEUTROPHILS 74.3(H) 47.0 - 73.0 % 01/12/2025 12:29 PM CDT [facility] LYMPHOCYTES 17.0(L) 18.0 - 42.0 % 01/12/2025 12:29 PM CDT [facility] MONOCYTES 6.8 4.0 - 12.0 % 01/12/2025 12:29 PM CDT [facility] EOSINOPHILS 1.1 0.0 - 5.0 % 01/12/2025 12:29 PM CDT [facility] BASOPHILS 0.8 0.0 - 1.0 % 01/12/2025 12:29 PM CDT [facility] ABSOLUTE NEUTROPHILS 6.31 1.60 - 7.70 10(3)/[facility] 01/12/2025 12:29 PM CDT [facility] ABSOLUTE LYMPHOCYTES 1.44 1.30 - 3.20 10(3)/mcL 01/12/2025 12:29 PM CDT [facility] ABSOLUTE MONOCYTES 0.58 0.20 - 1.00 10(3)/[facility] 01/12/2025 12:29 PM CDT [facility] ABSOLUTE EOSINOPHIL 0.09 0.00 - 0.40 10(3)/[facility] 01/12/2025 12:29 PM CDT [facility] ABSOLUTE BASOPHILS 0.07 0.00 - 0.10 10(3)/[facility] 01/12/2025 12:29 PM CDT [facility] NRBC PER 100 WBC 0 01/13/20 25 12:29 PM CDT [facility] Blood Venipuncture / Unknown 01/12/2025 12:20 PM CDT 01/12/2025 12:27 PM CDT us Oumar Patricio PAC HEMATOLOGY ORDERABLES Final Result [facility] [address] [place] [address] * (ABNORMAL) D-DIMER [id number] (01/12/2025 12:20 PM CDT) D DIMER 0.55(H) <0.50 mcg/mL FEU 01/12/2025 12:50 PM CDT [facility] Blood Venipuncture / Unknown 01/12/2025 12:20 PM CDT 01/12/2025 12:27 PM CDT Narrative [facility] - 01/12/2025 12:50 PM CDT The FDA has approved this method to exclude the diagnosis of DVT and/or PE at the cutoff value of <0.50 mcg/mL FEU. Oumar Patricio PAC HEMATOLOGY ORDERABLES Final Result [facility] [address] [place] [address] * (ABNORMAL) Comprehensive Metabolic Panel (Cmp) [id number] (01/12/2025 12:20 PM CDT) SODIUM 138 136 - 145 mmol/L 01/12/2025 12:49 PM CDT [facility] POTASSIUM 4.0 3.5 - 5.1 mmol/L 01/12/2025 12:49 PM CDT [facility] CHLORIDE 108(H) 98 - 107 mmol/L 01/12/2025 12:49 PM CDT [facility] CO2, VENOUS 24 22 - 30 mmol/L 01/12/2025 12:49 PM CDT [facility] ANION GAP 10.0 <18.0 mmol/L 01/12/2025 12:49 PM CDT [facility] GLUCOSE 130(H) 70 - 99 mg/dL 01/12/2025 12:49 PM CDT [facility] BUN 13 5 - 18 mg/dL 01/12/2025 12:49 PM CDT [facility] CREATININE, BLOOD 0.88 0.60 - 1.00 mg/dL 01/12/2025 12:49 PM CDT [facility] BUN/CREATININE RATIO 15 12 - 20 ratio 01/12/2025 12:49 PM CDT [facility] TOTAL PROTEIN 8.2(H) 6.0 - 8.0 g/dL 01/12/2025 12:49 PM CDT [facility] ALBUMIN 3.9 3.5 - 5.0 g/dL 01/12/2025 12:49 PM CDT [facility] A/G RATIO 0.9(L) 1.0 - 2.2 01/12/2025 12:49 PM CDT [facility] CALCIUM 9.1 8.7 - 10.5 mg/dL 01/12/2025 12:49 PM CDT [facility] T BILI 0.4 0.2 - 1.2 mg/dL 01/12/2025 12:49 PM CDT [facility] SGOT (AST) 118(H) <43 U/L 01/12/2025 12:49 PM CDT [facility] SGPT (ALT) 229(H) <56 U/L 01/12/2025 12:49 PM CDT [facility] ALKALINE PHOSPHATASE 115 40 - 150 U/L 01/12/2025 12:49 PM CDT [facility] GFR, ESTIMATED >60 >=60 01/12/2025 12:49 PM CDT [facility] Comment: Creatinine Clearance is the preferred criteria for selecting drug dose adjustments in renally impaired patients. The GFR is provided as additional pertinent clinical information. GFR is reported in mL/min/1.73 sq m. Calculation based on the Chronic Kidney Disease Epidemiology Collaboration (CKD- EPI) equation refit without adjustment for race. GFR, EST. >60 >=60 025 12:49 PM CDT [facility] GFR, EST. NONAFRICAN >60 >=60 01/12/2025 12:49 PM CDT [facility] Blood Venipuncture / Unknown 01/12/2025 12:20 PM CDT 01/12/2025 12:27 PM CDT Oumar Patricio PAC CHEMISTRY ORDERABLES Final Result [facility] [facility] [place] [address] * EKG 12 LEAD (01/12/2025 11:54 AM CDT) Ventricular Rate 93 BPM EXTERNAL EKG Atrial Rate 93 BPM EXTERNAL EKG P-R Interval 138 ms EXTERNAL EKG QRS Duration 74 ms EXTERNAL EKG Q-T Duration 356 ms EXTERNAL EKG QTC CALCULATION 442 ms EXTERNAL EKG P [place] 63 degrees EXTERNAL EKG R [place] 29 degrees EXTERNAL EKG T [place] 36 degrees EXTERNAL EKG Specimen (Source) Anatomical Location / Lat [id number]|2025-01-24 14:15:00|2025-01-24 14:06:00|XMS_ITS|BKG DAEMON|External Medical Summaries|[id number]|" Continuity of Care Document (C-CDA R2.1) (Encounter date: 11/15/2018 03:13 PM) Created on: January 24, 2025 Andrea , Aline Sumit External Reference #: [id number] : 1980 Sex: Female Author Organization [facility] Address [address] [place] [address] Phone Care Team Providers Care Apron Worker Name Role Phone Ace Andrew MD Unavailable Unavailable Allergies, Adverse Reactions, Alerts Substance Reaction Status Criticality No Known Allergies Active No Inform ation Procedures Procedure Date PREV VISIT, NEW, AGE 40-64 Advance Directives Directive Yes / No Effective Date File Name No Information Encounters Encounter Description Practice Location Reason(s) For Visit Diagnoses Date Provider Providers Copied on Encounter [facility], [address], [place], [place], [id number], [place] tel:[phone] [facility] No Information Kamran Bello. [address], [place], [place], [id number], [place]. tel:[phone] PREV VISIT, NEW, AGE 40-64 [facility], [address], [place], [place], [id number], [place] tel:[phone] [facility] PHysical (chief complaint) Encntr for general adult medical exam w/o abnormal findings Kamran Bello. [address], [place], [place], [id number], [place]. tel:[phone] Family History Family Member Type Diagnosis Age At Onset Father Problem (finding) Alive and well Brother Problem (finding) Alive and well Mother Problem (finding) CAD and pad (Cause Of D eath) 38 Payers Payer name Insurance type Covered alliance party ID Authoriza tion(s) No Information Social History Type Description Quantity Date Captured Comments Alcohol Use Details Unknown Caffeine Use Details Unknown Tobacco Use Status Smoking Status No Information Sex Female Chief Complaint And Reason For Visit No Information Plan Of Treatment Date Type Action Status Goal Special diet education compl eted Goal Tobacco cessation counseling completed History Of Present Illness Encounter Date Complaint History Of Prese nt Illness PHysical Pt needs annual physical. Pt tripped on the rug and she suffered left ankle fracture 4 weeks ago. Pt was seen at [facility] ER and she was placed in a partial cast and she was told to follow up with ortho but she missed her appointment twice due to med car issue and she wants a 2nd opinion now. Pt does not want to see ortho at [facility] anymore. Pt was told that she needs surgery to fix her left ankle from ortho she see at ER. Pt c/o left ankle pain Pt also notices that all her left toes feels numbness and tingling. Pt did go back to ER for cast issue but she told me ER did not remove her cast. Pt c/o swelling and pain left calf as well. Pt c/o left ankle pain. Pt is on bactrim now. Pt is taking norco PRN for pain which she is running low. Pt denies any fever, etc Instructions Date Instruction Additional Infor loretta Special diet education Related t o Body mass index (BMI) 27.0-27.9, adult Assessments Type Assessment Date No Information "
--- OUTSIDE RECORDS SUMMARY | 2025-01-24 14:15 | XMS_ITS | Encounter Summary ---
Author Organization [facility] Address [address] [place] [address] Phone Care Team Providers Care Colloid Mill Operator Name Role Phone Quentin Dumont APRN, KATHERINE Primary Care Pr ovider Vasile Lopez MD Unavailable Margot Fairbanks APRN, CNP Unavailable Reason for Referral * Radiology Services (Routine) - Closed Specialty Diagnoses / Procedures Referred By Jo manuel Referred To Contact Radiology Diagnoses Abnormal mammogram Procedures CALVIN DIAG BILATERAL DIGITAL W CAD W TIERRA Quentin Dumont APRN, KATHERINE [address] [address] Phone: tel: fax: Referral ID Status Reason Start Date Expiration Date Visits Re quested Visits Authorized [id number] Closed 11/29/2024 1 1 Encounter Details Date Type Department Care Team (Late st Contact Info) Description 11/29/2024 Transcribe Orders [facility] Mammography [address] [place] [id number] Quentin Dumont APRN, TENSION MACHINE OPERATOR #[address] [address] Abnormal mammogram (Primary Dx) Social History Tobacco Use Types Packs/Day Years Used Date Smoking Tobacco: Every Day Cigarettes Smokeless Tobacco: Never Alcohol Use Standard Drinks/Week Comments No 0 (1 standard drink = 0.6 oz pur e alcohol) [facility] Utilities Answer Date Recorded In the past 12 months has e electric, gas, oil, or water company threatened to shut off services in your [...] often do you attend chur ch or bahai services? Never 10/12/2024 Do you belong to any clubs o r organizations such as anglican groups, unions, fraternal or athletic groups, or [...] Total Score - Questions 1-9 3 09/15 [facility] - Occupational Stress [...] any time in the past 12 m [facility], were you homeless or living in a detention (including now)? Yes 10/12/2024 Comments No Sex and Gender Information Value Date Recorded Sex Assigned at Not on file Legal Sex Female 10:05 PM CDT Gender Identity Not on file Sexual Orientation Not on file documented as of this encounter Plan of Treatment Upcoming Encounters Date Type Department Care Team (Latest Contact Info) Description 02/07/2025 1:00 PM CDT Office Visit [facility] - Family Medicine - [place] [address] [place] [address] Quentin Dumont, CHARGE COORDINATOR, TENSION MACHINE OPERATOR #[address] [address] 03/20/2025 1:00 PM CDT Appointment [facility] [address] [place] [address] Quentin Dumont, CHARGE COORDINATOR, TENSION MACHINE OPERATOR #2 [facility] [address] [place] [address] Discharge Disposition: Discharged to home or Selfcare 06/19/2025 1:30 PM CDT Immunization [facility] - [place] [address] [place] [address] Nurse, [facility] Gastro documented as of this encounter Results * CALVIN DIAG BILATERAL DIGITAL W CAD W TIERRA (12/18/2024 3:22 PM CDT) Anatomical Region Laterality Modality breast Bilateral Mammography 12/18/2024 2:41 PM CDT Narrative 12/18/2024 5:12 PM CDT - CALVIN DIAG BILATERAL DIGITAL W CAD W TIERRA - CALVIN US BREAST LIMITED ROSALIND BILATERAL DIGITAL DIAGNOSTIC MAMMOGRAM 3D/2D WITH CAD WITH MEDIOLATERAL OBLIQUE CRANIOCAUDAL AND TARGETED BILATERAL ULTRASOUND: 12/18/2024 The study was acquired using digital technology and interpreted from soft copy. Current study was also evaluated with Fishin' Glue version 7.2. 2D digital mammographic views, as well as 3D digital tomosynthesis were performed in the CC and MLO projections. CLINICAL: Baseline. Diagnostic study. Patient reports multiple painful lumps through out both breasts, indicated by markers on exam. History of infection and surgery to skin and axillary lymph node, right side. No personal history of cancer. No family history of breast cancer. COMPARISONS: No prior exams were available for comparison. BREAST TISSUE:The breasts are heterogeneously dense, which may obscure small masses. FINDINGS: BILATERAL DIAGNOSTIC MAMMOGRAM Palpable markers are placed bilaterally. Coarse microcalcifications are identified associated with some but not all of the markers. There is no dominant density or suspicious microcalcification in either breast. Scattered benign and coarse microcalcifications are present bilaterally. TARGETED BILATERAL BREAST ULTRASOUND Targeted right breast ultrasound was performed in the regions of interest as indicated by the patient. At the 12 o'clock position 5 cm from the nipple there is a mixed echotexture lesion which is circumscribed and subdermal. It measures 7 mm. There is no evidence of color flow. This likely represents fat necrosis. At the 12 o'clock position 6 cm from the nipple is a mixed echotexture cystic lesion. No internal color flow is documented. There is posterior acoustical enhancement. This measures 7 mm and likely represents an area of fat necrosis. It is probably benign. There is an additional similar lesion measuring 8 mm at the same position. At the 2 o'clock position 6 cm from the nipple is a round mixed echotexture lesion measuring 6 mm. This is in the subdermal tissues and likely represents fat necrosis. This is probably benign. Targeted left breast ultrasound was performed in the regions of interest. At the 2 o'clock position 5 cm from the nipple is a mixed echotexture lesion. There is no evidence of color flow. This is present within the subdermal tissues. It measures 8 mm. It likely represents fat necrosis and is probably benign. An identical lesion is present at the 12 o'clock position 4 cm from the nipple measuring 7 mm. Finally, a lesion at the 4 o'clock position 8 cm from the nipple demonstrates identical imaging characteristics, likely represents fat necrosis and is probably benign. IMPRESSION: OVERALL STUDY BIRADS: CATEGORY 3: PROBABLY BENIGN Multiple bilateral palpable lesions demonstrate mammographic and/or sonographic characteristics suggestive of fat necrosis and are probably benign. A follow-up mammogram and an ultrasound in 6 months is recommended to demonstrate stability. The results and recommendations were discussed with the patient. Electronically signed by: Lety Mera M.D. ab/:12/18/2024 16:11:48 Community Health Nurse Staff(s): [facility] Escobar, [facility]; RT Jose Daniel(R)(M), [facility] letter sent: Birad 3 Followup Reading location: [facility] OVERALL STUDY BIRADS: Category 3: Probably Benign Procedure Note Lety Mera MD - 12/18/2024 - CALVIN DIAG BILATERAL DIGITAL W CAD W TIERRA - CALVIN US BREAST LIMITED ROSALIND BILATERAL DIGITAL DIAGNOSTIC MAMMOGRAM 3D/2D WITH CAD WITH MEDIOLATERAL OBLIQUE CRANIOCAUDAL AND TARGETED BILATERAL ULTRASOUND: 12/18/2024 The study was acquired using digital technology and interpreted from soft copy. Current study was also evaluated with ICAD version 7.2. 2D digital mammographic views, as well as 3D digital tomosynthesis were performed in the CC and MLO projections. CLINICAL: Baseline. Diagnostic study. Patient reports multiple painful lumps through out both breasts, indicated by markers on exam. History of infection and surgery to skin and axillary lymph node, right side. No personal history of cancer. No family history of breast cancer. COMPARISONS: No prior exams were available for comparison. BREAST TISSUE:The breasts are heterogeneously dense, which may obscure small masses. FINDINGS: BILATERAL DIAGNOSTIC MAMMOGRAM Palpable markers are placed bilaterally. Coarse microcalcifications are identified associated with some but not all of the markers. There is no dominant density or suspicious microcalcification in either breast. Scattered benign and coarse microcalcifications are present bilaterally. TARGETED BILATERAL BREAST ULTRASOUND Targeted right breast ultrasound was performed in the regions of interest as indicated by the patient. At the 12 o'clock position 5 cm from the nipple there is a mixed echotexture lesion which is circumscribed and subdermal. It measures 7 mm. There is no evidence of color flow. This likely represents fat necrosis. At the 12 o'clock position 6 cm from the nipple is a mixed echotexture cystic lesion. No internal color flow is documented. There is posterior acoustical enhancement. This measures 7 mm and likely represents an area of fat necrosis. It is probably benign. There is an additional similar lesion measuring 8 mm at the same position. At the 2 o'clock position 6 cm from the nipple is a round mixed echotexture lesion measuring 6 mm. This is in the subdermal tissues and likely represents fat necrosis. This is probably benign. Targeted left breast ultrasound was performed in the regions of interest. At the 2 o'clock position 5 cm from the nipple is a mixed echotexture lesion. There is no evidence of color flow. This is present within the subdermal tissues. It measures 8 mm. It likely represents fat necrosis and is probably benign. An identical lesion is present at the 12 o'clock position 4 cm from the nipple measuring 7 mm. Finally, a lesion at the 4 o'clock position 8 cm from the nipple demonstrates identical imaging characteristics, likely represents fat necrosis and is probably benign. IMPRESSION: OVERALL STUDY BIRADS: CATEGORY 3: PROBABLY BENIGN Multiple bilateral palpable lesions demonstrate mammographic and/or sonographic characteristics suggestive of fat necrosis and are probably benign. A follow-up mammogram and an ultrasound in 6 months is recommended to demonstrate stability. The results and recommendations were discussed with the patient. Electronically signed by: Lety Mera M.D. ab/:12/18/2024 16:11:48 Community Health Nurse Staff(s): Maye Toussaint RDMS OBGYN, [facility]; RT Jose Daniel(R)(M), [facility] letter sent: Birad 3 Followup Reading location: [facility] BIRADS: Category 3: Probably Benign us Quentin Dumont APRN, CNP IMJamel MAMMO ORDERA BLES Final Result documented in this encounter Visit Diagnoses Diagnosis Abnormal mammogram- Primary Abnormal mammogram, unspecified Abnormal mammogram Abnormal mammogram, unspecified documented in this encounter Additional Health Concerns Assessment Noted Time PHQ-9 Depression Total Score: 3 10/12/19 25 10:26 AM GROUP LEADER documented as of this encounter Care Teams Colloid Mill Operator Relationship Specialty Start Date End Date Quentin Dumont APRN, TENSION MACHINE OPERATOR #[address] [address] PCP - General Advanced Practice Nurse 06/30/24 Vasile Lopez MD #[address] [address] Consulting Physician Colon and Rectal Surgery 07/21/24 Margot Fairbanks APRN, TENSION MACHINE OPERATOR #[address] [place] [address] Nurse Practitioner Advanced Practice Nurse 11/07/24 documented as of this encounter
--- OUTSIDE RECORDS SUMMARY | 2025-01-24 14:15 | XMS_ITS | Encounter Summary ---
Author Organization [facility] Address [address] [place] [address] Phone Care Team Providers Care Gridcap Machine Operator Name Role Phone Quentin Dumont APRN, ASSAYER Primary Care Pr ovider Vasile Lopez MD Unavailable Margot Fairbanks APRN, ASSAYER Unavailable Reason for Visit * Reason Onset Date Comments Pelvic Pain 01/24/2025 Vaginal Swelling 01/24/2025 Encounter Details Date Type Department Care Team (Late st Contact Info) Description 01/24/2025 Nurse Triage [facility] [address] [place] [address] Quentin Dumont, FOZIA, ASSAYER #[address] [address] Pelvic Pain; Vaginal Swelling Social History Tobacco Use Types Packs/Day Years Used Date Smoking Tobacco: Every Day Cigarettes 0.3 32.4 Started: 1994 Smokeless Tobacco: Never Alcohol Use Standard Drinks/Week Comments No 0 (1 standard drink = 0.6 oz pur e alcohol) [facility] Utilities Answer Date Recorded In the past [...] often do you attend chur ch or jew services? Never 10/12/2024 Do you belong to any clubs o r organizations such as catholic groups, unions, fraternal or athletic groups, or [...] Total Score - Questions 1-9 3 09/15 [facility] - Occupational Stress Questionnaire Answer Date Recorded [...] any time in the past 12 m [facility], were you homeless or living in a halfway (including now)? Yes 10/12/2024 Comments No Sex and Gender Information Value Date Recorded Sex Assigned at Not on file Legal Sex Female 10:05 PM CDT Gender Identity Not on file Sexual Orientation Not on file documented as of this encounter Miscellaneous Notes * Telephone Encounter - Ray Castro RN - 01/24/2025 1:28 PM CDT SITUATION: Left labial swelling, pain BACKGROUND: Aline contacting PCP office. Left Iliac thrombectomy-06/20/24-[facility] ASSESSMENT: Symptom Description / Location: 2 days ago, started out as a small know next to the left labia, then over the night, the labia became hard, warm and tender. Patient states that my gland is swollen on the left side Patient reports some sharp abdominal pains the night before, lasting only a minute, intermittent sharp pain. Patient reports that her urine is really concentrated, admits to not drinking a lot of fluids, stating it is orange in color. Pain: 10/10 when sitting down Fever: Denies fever. Treatment / Response: Ibuprofen, cool compress, rest with some relief. Last Menstrual Period: 01/21/25 RECOMMENDATION: Caller agreeable to disposition: go to office now. Care advice provided per triage guideline. Caller verbalized understanding. Due to office unavailability within disposition, advised for patient to be seen at prompt care or urgent care. Caller agreeable to prompt care/urgent care. - See care advice and disposition for Guideline. First positive answer recorded, all responses to prior questions were negative. If symptoms increase, change or if new symptoms develop, call your health care provider or call back. Recommendations were based on caller information and is not a diagnosis. Verified and reviewed all triage information with caller. Reason for Disposition SEVERE pain (e.g., excruciating) Protocols used: Vulvar [id number]-MG * Telephone Encounter - Moon Latham - 01/24/2025 1:26 PM CDT Symptom: Lump or Bump Outcome: Schedule an urgent appointment within same day Reason: Red and larger than 1 inch The caller accepted this outcome. No same day appts documented in this encounter Plan of Treatment Upcoming Encounters Date Type Department Care Team (Latest Contact Info) Description 02/07/2025 1:00 PM CDT Office Visit [facility] Medical Group - Family Medicine [facility] #[address] [place] [phone] Quentin Dumont APRN, ASSAYER #[address] [address] 03/20/2025 1:00 PM CDT Appointment [facility] Cardiology Services [address] [place] [phone] Quentin Dumont APRN, ASSAYER #[address] [address] Discharge Disposition: Discharged to home or Selfcare 06/19/2025 1:30 PM CDT Immunization [facility] - [place] [address] [place] [address] NurseTanner Gastro documented as of this encounter Visit Diagnoses Not on filedocumented in this encounter Additional Health Concerns Assessment Noted Time PHQ-9 Depression Total Score: 3 10/12/19 10:26 AM LEGAL OPERATIONS MANAGER documented as of this encounter Care Teams Gridcap Machine Operator Relationship Specialty Start Date End Date Quentin Dumont APRN, ASSAYER #2 [facility] [address] [place] [address] PCP - General Advanced Practice Nurse 06/30/24 Vasile Lopez MD #2 [facility] [address] [place] [address] Consulting Physician Colon and Rectal Surgery 07/21/24 Margot Fairbanks APRN, ASSAYER #[address] [place] [address] Nurse Practitioner Advanced Practice Nurse 11/07/24 documented as of this encounter
--- OUTSIDE RECORDS SUMMARY | 2025-01-24 14:16 | XMS_ITS | Continuity of Care Document ---
Author Organization [facility] Address [address] [facility] [address] [place] [address] [place] [address] Phone Care Team Providers Care Sericulture Teacher Name Role Phone Ace Andrew MD Unavailable Unavailable Allergies, Adverse Reactions, Alerts Substance Reaction Status Criticality No Known Allergies Active No Inform ation Procedures Procedure Date PREV VISIT, NEW, AGE 40-64 Advance Directives Directive Yes / No Effective Date File Name No Information Encounters Encounter Description Practice Location Reason(s) For Visit Diagnoses Date Provider Providers Copied on Encounter [facility] [place], [address], [id number], tel:[phone] [facility] [place] No Information Kamran Bello. [address] [facility] [place], [id number], [place]. tel:[phone] PREV VISIT, NEW, AGE 40-64 [facility] [place], [address] [place], [place], [id number], [place] tel:[phone] [facility] [place] PHysical (chief complaint) Encntr for general adult medical exam w/o abnormal findings Kamran Bello. [address] [facility] [place], [id number], . tel:[phone] Family History Family Member Type Diagnosis Age [...] 4 weeks ago. Pt was seen at [facility] ER and she was placed in a partial cast and she was told to follow up with ortho but she missed her appointment twice due to med car issue and she wants a 2nd opinion now. Pt does not want to see ortho at [facility] anymore. Pt was told that [...]
[2025-01-24] MEDS: LIDOCAINE 1% LOCAL INJ 2 ML AMPUL 6 ML INFILTRATE (14:34)
== END 2025-01-24 15:13 | disposition home or self-care (01) ==
PROVIDERS: Emergency Provider Nurse Practitioner
DX: N75.8 Other diseases of Bartholin's gland (principal); F17.210 Nicotine dependence, cigarettes, uncomplicated; I73.9 Peripheral vascular disease, unspecified
CPT/HCPCS: 56420; 99213; G0463; J2003